=== PATIENT | female | born 1950 | race Caucasian/White ===

== ENCOUNTER 2019-02-19 08:00 | Inpatient (IN) | payer MEDICARE ==
--- NOTE | 2019-02-12 10:12 | HP ---
Amended report to enter cosigning physician. HISTORY AND PHYSICAL: DATE OF ADMISSION/SURGERY: 02/19/19 DATE OF OFFICE VISIT: 02/11/19 SURGEON: Olesya Khan MD* (dictated by DAVIS Ortiz). PROCEDURE: Left total knee arthroplasty. CHIEF COMPLAINT: Left knee pain. HISTORY OF PRESENT ILLNESS: Ms. Shell is a 68-year-old female with end- stage osteoarthritis of the left knee. She has failed conservative treatment and elected to proceed with a left total knee arthroplasty. PAST MEDICAL HISTORY: 1. Hypertension. 2. High cholesterol. 3. History of breast cancer. 4. Sleep apnea. PAST SURGICAL HISTORY: 1. Lumpectomy. 2. Cholecystectomy. 3. Left knee surgery. CURRENT MEDICATIONS: 1. Rosuvastatin calcium 10 mg a day. 2. Vitamin D. 3. Valsartan/hydrochlorothiazide 320/25 mg a day. ALLERGIES: No known drug allergies. FAMILY HISTORY: Cancer. SOCIAL HISTORY: She is a 68-year-old female. She lives with her . She does not smoke or use drugs. REVIEW OF SYSTEMS: A complete 14-point review of systems was reviewed with the patient. It was all negative. She denies history of DVT, PE, hepatitis, HIV, or anesthesia problems. PHYSICAL EXAMINATION GENERAL: She is well developed, well nourished, in no acute distress. VITAL SIGNS: She stands 5 feet 4 inches tall, weighs 187 pounds. Blood pressure 146/90, heart rate 60. HEENT: Normocephalic, atraumatic. NECK: Supple. No palpable lymph nodes. PULMONARY: Lungs are clear to auscultation bilaterally. CARDIO: Regular rate and rhythm. Strong S1, S2. ABDOMEN: Soft, nontender, and nondistended. NEUROLOGICAL: She is alert and oriented x3. MUSCULOSKELETAL: Left lower extremity: The skin is intact. There are no open wounds or abrasions. There is a moderate effusion of the left knee, some tenderness over the medial and lateral joint line. Range of motion is 10 to 120 degrees of flexion with patellofemoral crepitus. She has a 2+ dorsalis pedis pulse. She is able to dorsiflex and plantarflex and has intact sensation. ASSESSMENT AND PLAN: Ms. Shell is a 68-year-old female with end-stage osteoarthritis of the left knee. She has failed conservative treatment and elected to proceed with a left total knee arthroplasty. The surgery is scheduled for 02/19/[address] Khan discussed the risks and benefits of the surgery at today's visit and all of her questions were answered. She will follow up with Dr. Khan 2 weeks after the surgery. DAVIS ORTIZ [id number] #: [id number] MELISSA
[~2019-02-19 08:00] MED LIST: Buffered Lidocaine 1% SYRIN* 1 ML/SYRINGE INTRADERM ONE; Dexamethasone IV* 4 MG/ML 1 ML (4 MG) IV SLOW PU ONE; Famotidine IV* 10 MG/ML 2 ML (20 mg) IV ONE; Gabapentin CAP(*) 300 MG PO ONE; Lactated Ringers 1000 ML Bag* 1,000 ML IV SCH; Tranexamic Acid 1,000 MG in NS 0.9% 50 ML* (outpatient use) IV SCH; celeCOXIB CAP* 200 MG PO ONE
--- OUTSIDE RECORDS SUMMARY | 2019-02-19 08:05 | XMS REPORT | Continuity of Care Document ---
:1950 External Reference #:[id number] Author Name Edith Blake MD Address [address] [place] [address] Care Team Providers Name Role Phone Edith Blake MD Care Team Information Director Of Employer Services Unavailable Payers Date Identification Numbers Payment Provider Subscriber Effective: 2016 Policy Number: [id number] [employer] Number: [id number] [address] [address] PayID: [id number] [place]AYNE lei [id number] Problems Active Problems Provider Date Benign essential hypertension Edith Blake MD Onset: 04/21/2015 Pure hypercholesterolemia Edith Blake MD Onset: 04/21/2015 Essential hypertension Edith Blake MD Onset: 08/10/2015 Family History Date Family Member(s) Observation Comments Father due to Cancer, Esophagus () Social History Type Date Description Comments Sex Unknown Marital Status 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 ETOH Use Denies alcohol use Tobacco Use Start: Unknown Patient has never smoked Recreational Drug Use Never Used Drugs Smoking Status Reviewed: 02/08/19 Patient has never smoked Sun Exposure moderate amount of sun exposure Sun Exposure Does not use sunscreen Seat Belt/Car Seat always uses seat belt Recent Travel There has not been recent travel abroad Allergies, Adverse Reactions, Alerts Description No Known Drug Allergies Medications Active Medications SIG Qnty Indications Ordering Date Provider Shingrix 2 shot series 2units Z00.00 Edith Blake 04/17/2018 50mcg MD [facility] Suspension Rec Co-Enzyme Q-10 1 by mouth every E78.2 Edith Blake 04/17/2018 100mg day MD [facility] Capsules Rosuvastatin Calcium 1 by mouth every 90tabs E78.2 Edith Blake 2017 stephanie Austin MD 10mg Tablets Vitamin D 1 by mouth every E55.9 Edith Blake 04/17/2018 1000Unit day MD [facility] Tablets Cpap auto titrating G47.33 Edith Blake 12/03/2015 5-20 cm dx: efraín Austin MD Valsartan-Hydrochloro take one tablet by 90tabs I10 Edith Blake 04/21 thiazide mouth every day MD [facility] 320-25mg Tablets History Medications Celecoxib take 1 capsule by 60caps M17.0 Lou, 08/07/2018 - 100mg mouth as needed up Edith Austin MD 12/07/2018 Capsules to twice daily for pain/arthritis Silver Sulfadiazine apply to wound LEFT 85gm T25.222A Lou, 08/07/2018 - foot bid. Edith Austin MD 12/07/2018 1% Cream Ranitidine HCL take 1 tablet by 30tabs R07.9 Lou 07/18/2018 - mouth every day Edith Austin MD 12/07/2018 300mg Tablets 30min before last meal Atorvastatin 1 by mouth every day 90tabs E78.2 Lou, 04/17/2017 - Calcium Edith Austin MD 04/17/2018 20mg Tablets Vitamin D3 1 by mouth every day 30tabs E55.9 Lou, 04/17/2017 - 2000Unit Edith Austin MD 04/17/2018 Tablets Vitamin D 1 by mouth qwk x 8 8caps Lou, 04/17/2017 - (Ergocalciferol) wks Edith Austin MD 07/03/2017 [id number] Capsules Azithromycin 1 by mouth every day 7tabs Lou 03/27/2017 - 500mg Edith Austin MD 04/03/2017 Tablets Ciprofloxacin HCL 1 by mouth twice a 6tabs N30.01 Lou, 12/12/2016 - day Edith Austin MD 04/11/2017 250mg Tablets Meclizine HCL take 1 - 2 tablets 30tabs R42 Lou 12/12/2016 - by mouth three times Edith Austin MD 04/11/2017 12.5mg Tablets a day as needed for dizziness Furosemide takeone half to one 30tabs R60.0 Luis 03/25/2016 - 20mg tablet by mouth up Marcia Arredondo RN 04/17/2018 Tablets to 3 times a week as [place] [employer] needed for edema Meloxicam take 1/2 - 1 tablet 30tabs M25.562 Lou, 01/20/2016 - 15mg everyday as needed Edith Austin MD 05/10/2016 Tablets Welchol take 2 every day 60tabs K91.5 Lou, 08/10/2015 - 625mg prn diarrhea Edith Austin MD 12/07/2018 Tablets Aspirin Enteric 1 by mouth every day Lou, 04/21/2015 - Coated Adult Low Edith Austin MD 12/07/[address] Simvastatin 1 by mouth every day 90tabs E78.2 Lou, 04/21/2015 - 40mg Edith Austin MD 12/12/2016 Tablets Zostavax intramuscular x 1 1units Lou, 04/21/2015 - Edith Austin MD 09/21/2015 [id number]/0.65ML Solution Rec Labetalol HCL take one tablet by 90tabs I10 Lou, 04/21/2015 - 200mg mouth every day Edith Austin MD 04/17/2018 Tablets Medications Administered in Office Medication SIG Qnty Indications Ordering Provider Date Depo Medrol 80 MG Sami Padilla PA 08/07/2018 Injection Depo Medrol 80 MG Sami Padilla PA 08/07/2018 Injection Depo Medrol 80 MG Sami Padilla PA 05/29/2018 Injection Depo Medrol 80 MG Edith Blake MD 04/17/2018 Injection Immunizations CPT Code Status Date Vaccine Lot # [id number] Given 08/28/2018 Shingrix (Shingles) Zoster Vaccine HZV, Recombinant, Subunit, Adj [id number] Given 05/29/2018 Influenza Vac, Quadrivalent, Split, 0.5mL Dosage, [id number] Im Use 02065 Given 04/17/2018 Shingrix (Shingles) Zoster Vaccine HZV, Recombinant, Subunit, Adj [id number] Given 04/11/2018 Shingrix (Shingles) Zoster Vaccine HZV, Recombinant, Subunit, Adj 01454 Given 05/10/2016 Pneumococcal 23 Immunization Adult Or [id number] Immunosuppressed Patient [id number] Given 09/21/2015 Tdap (Adacel) Ages 7 And Above Only [id number] Given 09/11/2015 Zoster (Zostavax) 87710 Given 11/09/2014 Prevnar 13 Pneumococal Conjugate Vaccine [id number] Refused 06/30/2017 Influenza Vac, Quadrivalent, Split, 0.5mL Dosage, Im Use [id number] Refused 12/12/2016 Influenza Vac, Quadrivalent, Split, 0.5mL Dosage, Im Use Vital Signs Date Vital Result Comment 02/08/2019 1:51pm Heart Rate 80 /min BP Systolic 140 mmHg BP Diastolic 90 mmHg Height 62.5 inches 5'2.50" 12/07/2018 7:58am Heart Rate 76 /min BP Systolic 130 mmHg BP Diastolic 78 mmHg Height 62.5 inches 5'2.50" 08/07/2018 7:24am Heart Rate 89 /min BP Systolic 143 mmHg BP Diastolic 88 mmHg Height 62.5 inches 5'2.50" 07/18/2018 1:00pm Heart Rate 99 /min BP Systolic 122 mmHg BP Diastolic 85 mmHg Height 62.5 inches 5'2.50" 05/29/2018 7:45am Heart Rate 76 /min BP Systolic 126 mmHg BP Diastolic 87 mmHg Height 62.5 inches 5'2.50" 04/17/2018 9:21am Weight 180.00 lb per pt Heart Rate 76 /min BP Systolic 126 mmHg BP Diastolic 84 mmHg Height 62.5 inches 5'2.50" BMI (Body Mass Index) 32.4 kg/m2 11/28/2017 7:56am Heart Rate 78 /min BP Systolic 132 mmHg BP Diastolic 87 mmHg Height 62.5 inches 5'2.50" 04/11/2017 8:11am Heart Rate 84 /min BP Systolic 132 mmHg BP Diastolic 90 mmHg Height 62.5 inches 5'2.50" 12/12/2016 1:11pm Body Temperature 97.3 F Heart Rate 80 /min BP Systolic 144 mmHg BP Diastolic 84 mmHg BP Systolic Recheck 138 mmHg BP Diastolic Recheck 80 mmHg Height 62.5 inches 5'2.50" 06/13/2016 8:20am Heart Rate 80 /min BP Systolic 137 mmHg BP Diastolic 87 mmHg Height 62.5 inches 5'2.50" 05/10/2016 2:38pm Heart Rate 68 /min BP Systolic 126 mmHg BP Diastolic 82 mmHg Height 62.5 inches 5'2.50" 03/25/2016 11:08am Heart Rate 73 /min BP Systolic 107 mmHg BP Diastolic 74 mmHg Height 62.5 inches 5'2.50" 01/20/2016 8:36am Weight 180.00 lb per pt Heart Rate 70 /min BP Systolic 143 mmHg BP Diastolic 90 mmHg BP Systolic Recheck 122 mmHg BP Diastolic Recheck 74 mmHg Height 62.5 inches 5'2.50" BMI (Body Mass Index) 32.4 kg/m2 09/21/2015 8:56am Heart Rate 68 /min BP Systolic 130 mmHg BP Diastolic 82 mmHg BP Systolic Recheck 120 mmHg BP Diastolic Recheck 70 mmHg Height 62.5 inches 5'2.50" 08/10/2015 1:06pm Heart Rate 68 /min BP Systolic 138 mmHg BP Diastolic 88 mmHg Height 62.5 inches 5'2.50" 04/21/2015 10:40am Weight 185.38 lb Heart Rate 68 /min BP Systolic 120 mmHg BP Diastolic 89 mmHg Height 62.5 inches 5'2.50" BMI (Body Mass Index) 33.4 kg/m2 Results Test Date Facility Test Result H/L Range Note Laboratory test 12/07/2018 [facility] Vitamin D 25 29 ng/mL Low 30-100 1, 2 finding Hydroxy Basic (BMP) 12/07/2018 [facility] Sodium 145 mmol/L 135-146 3 Potassium 4.1 mmol/L 3.5-5.2 Chloride# 102 mmol/L 97-110 4 Carbon Dioxide 33 mmol/L 24-34 Glucose 98 mg/dL 70-105 BUN 21 mg/dL 6-26 Creatinine 0.8 mg/dL 0.5-1.4 Calcium 9.7 mg/dL 8.5-10.2 Non Huong Egfr >60 >60 5 Huong Egfr >60 >60 6 Anion Gap 10 mmol/L 5-15 7 Lipid Treatment 12/07/2018 [facility] Cholesterol 167 mg/dL 50-199 Triglycerides 130 mg/dL 30-200 HDL 49 mg/dL 35-85 8 Chol/ HDL Ratio 3.4 ratio Low 3.7-5.6 VLDL 26 mg/dL 2-29 LDL (Calc) 92 mg/dL 20-99 9 Alt 18 U/L 3-42 Ast 19 U/L 8-42 CBC with Auto Diff-fcmg 04/17/2018 [facility] WBC 6.4 K/uL 4.1-11.0 RBC 4.72 M/uL 4.00-5.40 Hemoglobin 13.9 gm/dL 12.0-16.0 Hematocrit 42.4 % 36.0-47.0 MCV 89.7 fL 80.0-97.0 MCH 29.4 pg 27.0-32.0 MCHC 32.8 g/dL 32.0-36.0 RDW 13.0 % 11.5-14.5 PLT Count 284 K/ul 140-400 MPV 10.4 FL 7.1-10.7 Neutrophil 52.7 % 35.0-75.0 Lymphocyte 34.4 % 16.0-52.0 Monocyte 9.8 % 2.0-10.0 Eosinophil 1.7 % 0.0-5.0 Basophil 1.4 % 0.0-4.0 Abs Neutrophils 3.3 K/uL 2.1-8.0 Abs Lymphocytes 2.2 K/uL 0.8-5.5 Abs Monocytes 0.6 K/uL 0.1-1.0 Abs Eosinophils 0.1 K/uL 0.0-0.5 Abs Basophils 0.1 K/uL 0.0-0.3 Comprehensive Met Panel-[facility] 04/17/2018 [facility] Sodium 143 mmol/L 135- 146 10 Potassium 3.9 mmol/L 3.5-5.2 Chloride# 102 mmol/L 97-110 11 Carbon Dioxide 27 mmol/L 24-34 Glucose 87 mg/dL 70-105 BUN 18 mg/dL 6-26 Creatinine 0.9 mg/dL 0.5-1.4 Calcium 9.7 mg/dL 8.5-10.2 Total Protein 7.0 g/dL 6.0-8.0 Albumin 4.2 g/dL 3.6-4.9 Globulin 2.8 g/dL 2.0-3.5 A/G Ratio 1.5 Ratio 1.0-2.2 Total Bilirubin 0.8 mg/dL 0.1-1.3 Alkaline Phosphatase 46 U/L 24-140 Alt 21 U/L 3-42 Ast 21 U/L 8-42 Huong Egfr >60 >60 12 Non Huong Egfr >60 >60 13 Anion Gap 14 mmol/L 5-15 14 Lipid 04/17/2018 [facility] Cholesterol 251 mg/dL High 50-199 Triglycerides 161 mg/dL 30-200 HDL 52 mg/dL 35-85 15 Chol/ HDL Ratio 4.8 ratio 3.7-5.6 VLDL 32 mg/dL High 2-29 LDL (Calc) 167 mg/dL High -99 16 Laboratory test finding 04/17/2018 [facility] Vitamin D 25 38 ng/mL 30-100 17 Hydroxy Laboratory test finding 04/17/2018 [facility] Ca27.29 19.6 U/mL 18 Comprehensive Met 11/28/2017 [facility] Sodium 144 mmol/L 135-146 19 Panel-[facility] Potassium 4.3 mmol/L 3.5-5.2 Chloride# 102 mmol/L 97-110 20 Carbon Dioxide 33 mmol/L 24-34 Glucose 90 mg/dL 70-105 BUN 18 mg/dL 6-26 Creatinine 0.8 mg/dL 0.5-1.4 Calcium 9.7 mg/dL 8.5-10.2 Total Protein 7.0 g/dL 6.0-8.0 Albumin 4.3 g/dL 3.6-4.9 Globulin 2.7 g/dL 2.0-3.5 A/G Ratio 1.6 Ratio 1.0-2.2 Total Bilirubin 0.7 mg/dL 0.1-1.3 Alkaline Phosphatase 49 U/L 24-140 Alt 20 U/L 3-42 Ast 20 U/L 8-42 Huong Egfr >60 >60 21 Non Huong Egfr >60 >60 22 Anion Gap 9 mmol/L 5-15 23 Lipid 11/28/2017 [facility] Cholesterol 170 mg/dL 50-199 Triglycerides 106 mg/dL 30-200 HDL 57 mg/dL - 24 Chol/ HDL Ratio 3.0 ratio Low 3.7-5.6 VLDL 21 mg/dL 2-29 LDL (Calc) 92 mg/dL - 25 Laboratory test 11/28/2017 [facility] Vitamin D 25 Hydroxy 29 ng/mL Low 30- 100 26 finding Laboratory test 06/30/2017 [facility] Vit D25oh 39 ng/mL 31-100 finding Lipid Treatment 06/30/2017 [facility] Cholesterol 148 mg/dL 50-199 Triglycerides 131 mg/dL 30-200 HDL 47 mg/dL 35- 27 Chol/ HDL Ratio 3.2 ratio Low 3.7-5.6 VLDL 26 mg/dL 2-29 LDL (Calc) 75 mg/dL -99 28 Alt 16 U/L 3-42 Ast 16 U/L 8-42 Laboratory test finding 04/11/2017 [facility] TSH 2.02 uIU/mL 0.35-4.94 Vit D,25 Hydroxy 24 ng/mL Low 31-100 Comprehensive Met Panel-[facility] 04/11/2017 [facility] Sodium 144 mmol/L 135- 146 29 Potassium 4.2 mmol/L 3.5-5.2 Chloride# 102 mmol/L 97-110 30 Carbon Dioxide 29 mmol/L 24-34 Glucose 93 mg/dL 70-105 BUN 21 mg/dL 6-26 Creatinine 1.0 mg/dL 0.5-1.4 Calcium 9.8 mg/dL 8.5-10.2 Total Protein 7.0 g/dL 6.0-8.0 Albumin 4.1 g/dL 3.6-4.9 Globulin 2.9 g/dL 2.0-3.5 A/G Ratio 1.4 Ratio 1.0-2.2 Total Bilirubin 0.7 mg/dL 0.1-1.3 Alkaline Phosphatase 52 U/L 24-140 Alt 20 U/L 3-42 Ast 20 U/L 8-42 Huong Egfr >60 >60 31 Non Huong Egfr 57 Low >60 32 Anion Gap 13 mmol/L 7-16 33 Laboratory test finding 04/11/2017 [facility] Ca27.29 29.6 U/mL 34 Lipid 04/11/2017 [facility] Cholesterol 254 mg/dL High 50-199 Triglycerides 130 mg/dL 30-200 HDL 51 mg/dL 35-85 35 Chol/ HDL Ratio 5.0 ratio 3.7-5.6 VLDL 26 mg/dL 2-29 LDL (Calc) 177 mg/dL High 20-99 36 CBC With Auto Diff 04/11/2017 [facility] WBC 5.9 K/uL 4.1-11.0 RBC 4.69 M/uL 4.00-5.40 Hemoglobin 14.0 gm/dL 12.0-16.0 Hematocrit 42.7 % 36.0-47.0 MCV 91.1 fL 80.0-97.0 MCH 29.7 pg 27.0-32.0 MCHC 32.6 g/dL 32.0-36.0 RDW 12.8 % 11.5-14.5 PLT Count 268 K/ul 140-400 Neutrophil 53.3 % 35.0-75.0 Lymphocyte 32.4 % 16.0-52.0 Monocyte 10.7 % High 2.0-10.0 Eosinophil 2.3 % 0.0-5.0 Basophil 1.3 % 0.0-4.0 Abs Neutrophils 3.2 K/uL 2.1-8.0 Abs Lymphocytes 1.9 K/uL 0.8-5.5 Abs Monocytes 0.6 K/uL 0.1-1.0 Abs Eosinophils 0.1 K/uL 0.0-0.5 Abs Basophils 0.1 K/uL 0.0-0.3 Laboratory test 12/12/2016 [facility] Urine Culture Microbiology res Abnormal 37 finding <SEE NOTE> CBC With Auto 12/12/2016 [facility] WBC 7.5 K/uL 4.1-11 Diff .0 RBC 4.96 M/uL 4.00-5.40 Hemoglobin 14.7 gm/dL 12.0-16.0 Hematocrit 44.4 % 36.0-47.0 MCV 89.4 fL 80.0-97.0 MCH 29.7 pg 27.0-32.0 MCHC 33.2 g/dL 32.0-36.0 RDW 12.7 % 11.5-14.5 PLT Count 305 K/ul 140-400 Neutrophil 56.6 % 35.0-75.0 Lymphocyte 32.4 % 16.0-52.0 Monocyte 8.3 % 2.0-10.0 Eosinophil 1.5 % 0.0-5.0 Basophil 1.2 % 0.0-4.0 Abs Neutrophils 4.2 K/uL 2.1-8.0 Abs Lymphocytes 2.4 K/uL 0.8-5.5 Abs Monocytes 0.6 K/uL 0.1-1.0 Abs Eosinophils 0.1 K/uL 0.0-0.5 Abs Basophils 0.1 K/uL 0.0-0.3 Comprehensive Metabolic (CMP) 12/12/2016 [facility] Sodium 144 mmol/L 135- 146 38 Potassium 4.6 mmol/L 3.5-5.2 Chloride# 102 mmol/L 97-110 39 Carbon Dioxide 32 mmol/L 24-34 Glucose 95 mg/dL 70-105 BUN 16 mg/dL 6-26 Creatinine 0.9 mg/dL 0.5-1.4 Calcium 10.1 mg/dL 8.5-10.2 Total Protein 6.9 g/dL 6.0-8.0 Albumin 4.4 g/dL 3.6-4.9 Globulin 2.5 g/dL 2.0-3.5 A/G Ratio 1.8 Ratio 1.0-2.2 Total Bilirubin 0.5 mg/dL 0.1-1.3 Alkaline Phosphatase 53 U/L 24-140 Alt 19 U/L 3-42 Ast 20 U/L 8-42 Huong Egfr >60 >60 40 Non Huong Egfr >60 >60 41 Anion Gap 15 mmol/L 7-16 42 Lipid 01/20/2016 [facility] Cholesterol 145 mg/dL 50-199 Triglycerides 133 mg/dL 30-200 HDL 49 mg/dL 35-85 43 Chol/ HDL Ratio 3.0 ratio Low 3.7-5.6 VLDL 27 mg/dL 2-29 LDL (Calc) 69 mg/dL 20-99 44 Comprehensive Metabolic (CMP) 01/20/2016 [facility] Sodium 140 mmol/L 134- 142 Potassium 5.2 mmol/L 3.5-5.2 Chloride 103 mmol/L 97-109 Carbon Dioxide 32 mmol/L 24-34 Glucose 85 mg/dL 70-105 BUN 18 mg/dL 6-26 Creatinine 0.9 mg/dL 0.5-1.4 Calcium 9.5 mg/dL 8.5-10.2 Total Protein 6.3 g/dL 6.0-8.0 Albumin 3.8 g/dL 3.6-4.9 Globulin 2.5 g/dL 2.0-3.5 A/G Ratio 1.5 Ratio 1.0-2.2 Total Bilirubin 0.6 mg/dL 0.1-1.3 Alkaline Phosphatase 39 U/L 24-140 Alt 15 U/L 3-42 Ast 17 U/L 8-42 Anion Gap 10 mmol/L 6-14 Huong Egfr >60 >60 45 Non Huong Egfr >60 >60 46 Laboratory test 08/10/2015 [facility] Hepatitis C Virus NONREACTIVE Nonreactive finding Antibody Hepatic Panel (LFT) 08/10/2015 [facility] Total Protein 6.5 g/dL 6.0-8.0 Albumin 3.9 g/dL 3.6-4.9 Total Bilirubin 0.4 mg/dL 0.1-1.3 Direct Bilirubin 0.1 mg/dL 0.0-0.4 Alkaline Phosphatase 42 U/L 24-140 Alt 20 U/L 3-42 Ast 20 U/L 8-42 Lipid 08/10/2015 [facility] Cholesterol 203 mg/dL High 50-199 Triglycerides 137 mg/dL 30-200 HDL 50 mg/dL 35-85 47 Chol/ HDL Ratio 4.1 ratio 3.7-5.6 VLDL 27 mg/dL 2-29 LDL (Calc) 126 mg/dL High 20-99 48 Laboratory test finding 04/21/2015 [facility] Vit D,25 Hydroxy 65 ng/mL 31- 100 TSH 2.13 uIU/mL 0.35-4.94 Free T4 1.04 ng/dL 0.70-1.48 Lipid 04/21/2015 [facility] Cholesterol 187 mg/dL 50-199 Triglycerides 148 mg/dL 30-200 HDL 46 mg/dL 35-85 49 Chol/ HDL Ratio 4.1 ratio 3.7-5.6 VLDL 30 mg/dL High 2-29 LDL (Calc) 111 mg/dL High 20-99 50 Comprehensive Metabolic (CMP) 04/21/2015 [facility] Sodium 141 mmol/L 134- 142 Potassium 3.8 mmol/L 3.5-5.2 Chloride 100 mmol/L 97-109 Carbon Dioxide 35 mmol/L High 24-34 Glucose 78 mg/dL 70-105 BUN 24 mg/dL 6-26 Creatinine 0.8 mg/dL 0.5-1.4 Calcium 9.5 mg/dL 8.5-10.2 Total Protein 6.8 g/dL 6.0-8.0 Albumin 4.2 g/dL 3.6-4.9 Globulin 2.6 g/dL 2.0-3.5 A/G Ratio 1.6 Ratio 1.0-2.2 Total Bilirubin 0.7 mg/dL 0.1-1.3 Alkaline Phosphatase 44 U/L 24-140 Alt 15 U/L 3-42 Ast 17 U/L 8-42 Anion Gap 10 mmol/L 6-14 Huong Egfr >60 >60 51 Non Huong Egfr >60 >60 52 CBC With Auto Diff 04/21/2015 [facility] WBC 5.4 K/uL 4.1-11.0 RBC 4.47 M/uL 4.00-5.40 Hemoglobin 13.2 gm/dL 12.0-16.0 Hematocrit 40.2 % 36.0-47.0 MCV 90.0 fL 80.0-97.0 MCH 29.6 pg 27.0-32.0 MCHC 32.9 g/dL 32.0-36.0 RDW 12.8 % 11.5-14.5 PLT Count 254 K/ul 140-400 Neutrophil 53.2 % 35.0-75.0 Lymphocyte 32.9 % 16.0-52.0 Monocyte 9.5 % 2.0-10.0 Eosinophil 3.5 % 0.0-5.0 Basophil 0.9 % 0.0-4.0 Abs Neutrophils 2.9 K/uL 2.1-8.0 Abs Lymphocytes 1.8 K/uL 0.8-5.5 Abmon 0.5 K/uL 0.1-1.0 Abs Eosinophils 0.2 K/uL 0.0-0.5 Abs Basophils 0.0 K/uL 0.0-0.3 1 This sample is drawn by:NB. 2 Clinical Guidelines for recommended serum 25(OH)Vitamin D Deficient at less than 20 ng/mL Insufficient at 20 to <30 ng/mL Sufficient at 30-100 ng/mL Toxicity at greater than 100 ng/mL 3 Updated reference range on new analyzer 4 Updated reference range on new analyzer 5 Concerning GFR Guidelines: Normal function or mild renal disease, if clinically at risk: >/=60 mL/min Moderately decreased: 30-59 Severely decreased: 15-29 Renal failure: <15 Glomerular Filtration Rate (GFR) is estimated based on the MDRD equation, which assumes a steady state for creatinine as recommended by the National Kidney Disease Education Program in conjunction with the National Institutes of Health and the National Kidney Foundation. Clinical conditions in which it may be necessary to measure GFR by using clearance methods include extremes of age and body size, severe malnutrition or obesity, diseases of skeletal muscle, paraplegia or quadriplegia, vegetarian diet, rapidly changing kidney function, and calculation of the dose of potentially toxic drugs that are excreted by the kidneys. 6 Concerning GFR Guidelines for Americans: Normal function or mild renal disease, if clinically at risk: >/=60 mL/min Moderately decreased: 30-59 Severely decreased: 15-29 Renal failure: <15 7 Updated Reference Range 8 Per NCEP ATP III Guidelines: Results lower than 40 mg/dL are suggestive of increased risk for coronary artery disease. Results > or=to 60 mg/dL are considered a negative risk factor. 9 Per NCEP ATP III Guidelines: Normal Population <130 Patients with medical conditions: CHD/DM Optimal: <100 Borderline high: 130-159 High: 160-189 Very high: >189 10 Updated reference range on new analyzer 11 Updated reference range on new analyzer 12 Concerning GFR Guidelines for Americans: Normal function or mild renal disease, if clinically at risk: >/=60 mL/min Moderately decreased: 30-59 Severely decreased: 15-29 Renal failure: <15 13 Concerning GFR Guidelines: Normal function or mild renal disease, if clinically at risk: >/=60 mL/min Moderately decreased: 30-59 Severely decreased: 15-29 Renal failure: <15 Glomerular Filtration Rate (GFR) is estimated based on the MDRD equation, which assumes a steady state for creatinine as recommended by the National Kidney Disease Education Program in conjunction with the National Institutes of Health and the National Kidney Foundation. Clinical conditions in which it may be necessary to measure GFR by using clearance methods include extremes of age and body size, severe malnutrition or obesity, diseases of skeletal muscle, paraplegia or quadriplegia, vegetarian diet, rapidly changing kidney function, and calculation of the dose of potentially toxic drugs that are excreted by the kidneys. 14 Updated Reference Range 15 Per NCEP ATP III Guidelines: Results lower than 40 mg/dL are suggestive of increased risk for coronary artery disease. Results > or=to 60 mg/dL are considered a negative risk factor. 16 Per NCEP ATP III Guidelines: Normal Population <130 Patients with medical conditions: CHD/DM Optimal: <100 Borderline high: 130-159 High: 160-189 Very high: >189 17 Clinical Guidelines for recommended serum 25(OH)Vitamin D Deficient at less than 20 ng/mL Insufficient at 20 to <30 ng/mL Sufficient at 30-100 ng/mL Toxicity at greater than 100 ng/mL 18 Reference range: 0.0 to 40.0 INTERPRETIVE INFORMATION: Cancer Antigen 27.29 The CA 27.29 assay is intended for use in monitorin) disease progression and/or response to therapy in patients with metastatic disease, and 2) disease recurrence in patients treated previously for stages II or III breast carcinoma who are clinically free of the disease. Serial testing in patients who are clinically free of disease should be used in conjunction with other clinical methods for early detection of cancer recurrence. Limitations: Patients with confirmed breast carcinoma frequently have CA 27.29 assay values in the same range as healthy individuals. Elevations may also be observed in patients with non malignant disease. Results of this test must always be interpreted in the context of morphologic and other relevant data, and should not be used alone for a diagnosis of malignancy. Methodology: Siemens Advia Centaur CA 27.29 chemiluminescent immunoassay was used. Results obtained with different assay methods or kits cannot be used interchangeably. Performed by [facility], [address] [place] [id number] [email or web address], Kraig Dawn MD, Lab. Director Unless otherwise specified, testing performed by [facility] [address] [place] [id number] 19 Updated reference range on new analyzer 20 Updated reference range on new analyzer 21 Concerning GFR Guidelines for Americans: Normal function or mild renal disease, if clinically at risk: >/=60 mL/min Moderately decreased: 30-59 Severely decreased: 15-29 Renal failure: <15 22 Concerning GFR Guidelines: Normal function or mild renal disease, if clinically at risk: >/=60 mL/min Moderately decreased: 30-59 Severely decreased: 15-29 Renal failure: <15 Glomerular Filtration Rate (GFR) is estimated based on the MDRD equation, which assumes a steady state for creatinine as recommended by the National Kidney Disease Education Program in conjunction with the National Institutes of Health and the National Kidney Foundation. Clinical conditions in which it may be necessary to measure GFR by using clearance methods include extremes of age and body size, severe malnutrition or obesity, diseases of skeletal muscle, paraplegia or quadriplegia, vegetarian diet, rapidly changing kidney function, and calculation of the dose of potentially toxic drugs that are excreted by the kidneys. 23 Updated Reference Range 24 Per NCEP ATP III Guidelines: Results lower than 40 mg/dL are suggestive of increased risk for coronary artery disease. Results > or=to 60 mg/dL are considered a negative risk factor. 25 Per NCEP ATP III Guidelines: Normal Population <130 Patients with medical conditions: CHD/DM Optimal: <100 Borderline high: 130-159 High: 160-189 Very high: >189 26 Clinical Guidelines for recommended serum 25(OH)Vitamin D Deficient at less than 20 ng/mL Insufficient at 20 to <30 ng/mL Sufficient at 30-100 ng/mL Toxicity at greater than 100 ng/mL 27 Per NCEP ATP III Guidelines: Results lower than 40 mg/dL are suggestive of increased risk for coronary artery disease. Results > or=to 60 mg/dL are considered a negative risk factor. 28 Per NCEP ATP III Guidelines: Normal Population <130 Patients with medical conditions: CHD/DM Optimal: <100 Borderline high: 130-159 High: 160-189 Very high: >189 29 Updated reference range on new analyzer 30 Updated reference range on new analyzer 31 Concerning GFR Guidelines for Americans: Normal function or mild renal disease, if clinically at risk: >/=60 mL/min Moderately decreased: 30-59 Severely decreased: 15-29 Renal failure: <15 32 Concerning GFR Guidelines: Normal function or mild renal disease, if clinically at risk: >/=60 mL/min Moderately decreased: 30-59 Severely decreased: 15-29 Renal failure: <15 Glomerular Filtration Rate (GFR) is estimated based on the MDRD equation, which assumes a steady state for creatinine as recommended by the National Kidney Disease Education Program in conjunction with the National Institutes of Health and the National Kidney Foundation. Clinical conditions in which it may be necessary to measure GFR by using clearance methods include extremes of age and body size, severe malnutrition or obesity, diseases of skeletal muscle, paraplegia or quadriplegia, vegetarian diet, rapidly changing kidney function, and calculation of the dose of potentially toxic drugs that are excreted by the kidneys. 33 Updated reference range on new analyzer 34 Reference range: 0.0 to 40.0 INTERPRETIVE INFORMATION: Cancer Antigen 27.29 The CA 27.29 assay is intended for use in monitorin) disease progression and/or response to therapy in patients with metastatic disease, and 2) disease recurrence in patients treated previously for stages II or III breast carcinoma who are clinically free of the disease. Serial testing in patients who are clinically free of disease should be used in conjunction with other clinical methods for early detection of cancer recurrence. Limitations: Patients with confirmed breast carcinoma frequently have CA 27.29 assay values in the same range as healthy individuals. Elevations may also be observed in patients with non malignant disease. Results of this test must always be interpreted in the context of morphologic and other relevant data, and should not be used alone for a diagnosis of malignancy. Methodology: Siemens [employer] CA 27.29 chemiluminescent immunoassay was used. Results obtained with different assay methods or kits cannot be used interchangeably. Performed by [facility], [address] [place] [id number] [email or web address], Kraig Dawn MD, Lab. Director Unless otherwise specified, testing performed by [facility] [address] [place] [id number] 35 Per NCEP ATP III Guidelines: Results lower than 40 mg/dL are suggestive of increased risk for coronary artery disease. Results > or=to 60 mg/dL are considered a negative risk factor. 36 Per NCEP ATP III Guidelines: Normal Population <130 Patients with medical conditions: CHD/DM Optimal: <100 Borderline high: 130-159 High: 160-189 Very high: >189 37 Microbiology results SOURCE Random urine COLONY COUNT >100,000 CFU/ML PRELIMINARY RESULT Gram Negative Cameron. ID & Sensitivity to Follow. FINAL RESULT Escherichia coli (Isolate 1) Sensitivity Analysis Isolate 1 --------- AMIKACIN <=16 S AMPICILLIN <=8 S AMPICILLIN/SULBACTAM <=8/4 S AZTREONAM <=4 S CEFAZOLIN <=2 S CEFEPIME <=8 S CEFTAZIDIME <=1 S CEFTRIAXONE <=1 S CIPROFLOXACIN <=1 S ERTAPENEM <=0.5 S GENTAMYCIN <=2 S IMIPENEM <=1 S LEVOFLOXACIN <=2 S NITROFURANTOIN <=32 S PIPERACILLIN/TAZOBACTAM <=16 S TETRACYCLINE <=4 S TOBRAMYCIN <=4 S TRIMETHOPRIM/SULFAMETHOXAZ <=2/38 S S=Sensitive;I=Indeterminate;R=Resistant 38 Updated reference range on new analyzer 39 Updated reference range on new analyzer 40 Concerning GFR Guidelines for Americans: Normal function or mild renal disease, if clinically at risk: >/=60 mL/min Moderately decreased: 30-59 Severely decreased: 15-29 Renal failure: <15 41 Concerning GFR Guidelines: Normal function or mild renal disease, if clinically at risk: >/=60 mL/min Moderately decreased: 30-59 Severely decreased: 15-29 Renal failure: <15 Glomerular Filtration Rate (GFR) is estimated based on the MDRD equation, which assumes a steady state for creatinine as recommended by the National Kidney Disease Education Program in conjunction with the National Institutes of Health and the National Kidney Foundation. Clinical conditions in which it may be necessary to measure GFR by using clearance methods include extremes of age and body size, severe malnutrition or obesity, diseases of skeletal muscle, paraplegia or quadriplegia, vegetarian diet, rapidly changing kidney function, and calculation of the dose of potentially toxic drugs that are excreted by the kidneys. 42 Updated reference range on new analyzer 43 Per NCEP ATP III Guidelines: Results lower than 40 mg/dL are suggestive of increased risk for coronary artery disease. Results > or=to 60 mg/dL are considered a negative risk factor. 44 Per NCEP ATP III Guidelines: Normal Population <130 Patients with medical conditions: CHD/DM Optimal: <100 Borderline high: 130-159 High: 160-189 Very high: >189 45 Concerning GFR Guidelines for Americans: Normal function or mild renal disease, if clinically at risk: >/=60 mL/min Moderately decreased: 30-59 Severely decreased: 15-29 Renal failure: <15 46 Concerning GFR Guidelines: Normal function or mild renal disease, if clinically at risk: >/=60 mL/min Moderately decreased: 30-59 Severely decreased: 15-29 Renal failure: <15 Glomerular Filtration Rate (GFR) is estimated based on the MDRD equation, which assumes a steady state for creatinine as recommended by the National Kidney Disease Education Program in conjunction with the National Institutes of Health and the National Kidney Foundation. Clinical conditions in which it may be necessary to measure GFR by using clearance methods include extremes of age and body size, severe malnutrition or obesity, diseases of skeletal muscle, paraplegia or quadriplegia, vegetarian diet, rapidly changing kidney function, and calculation of the dose of potentially toxic drugs that are excreted by the kidneys. 47 Per NCEP ATP III Guidelines: Results lower than 40 mg/dL are suggestive of increased risk for coronary artery disease. Results > or=to 60 mg/dL are considered a negative risk factor. 48 Per NCEP ATP III Guidelines: Normal Population <130 Patients with medical conditions: CHD/DM Optimal: <100 Borderline high: 130-159 High: 160-189 Very high: >189 49 Per NCEP ATP III Guidelines: Results lower than 40 mg/dL are suggestive of increased risk for coronary artery disease. Results > or=to 60 mg/dL are considered a negative risk factor. 50 Per NCEP ATP III Guidelines: Normal Population <130 Patients with medical conditions: CHD/DM Optimal: <100 Borderline high: 130-159 High: 160-189 Very high: >189 51 Concerning GFR Guidelines for Americans: Normal function or mild renal disease, if clinically at risk: >/=60 mL/min Moderately decreased: 30-59 Severely decreased: 15-29 Renal failure: <15 52 Concerning GFR Guidelines: Normal function or mild renal disease, if clinically at risk: >/=60 mL/min Moderately decreased: 30-59 Severely decreased: 15-29 Renal failure: <15 Glomerular Filtration Rate (GFR) is estimated based on the MDRD equation, which assumes a steady state for creatinine as recommended by the National Kidney Disease Education Program in conjunction with the National Institutes of Health and the National Kidney Foundation. Clinical conditions in which it may be necessary to measure GFR by using clearance methods include extremes of age and body size, severe malnutrition or obesity, diseases of skeletal muscle, paraplegia or quadriplegia, vegetarian diet, rapidly changing kidney function, and calculation of the dose of potentially toxic drugs that are excreted by the kidneys. Procedures Date Code Description Status 12/24/2018 [id number] Mammogram Completed 08/07/2018 05417 Inject/Drain Joint/Bursa Major W/Out Ultrasound Completed Guidance 07/18/2018 41233 Electrocardiogram Complete Completed 05/29/2018 10348 Inject/Drain Joint/Bursa Major W/Out Ultrasound Completed Guidance 04/17/2018 17139 Electrocardiogram Complete Completed 04/17/2018 79773 Inject/Drain Joint/Bursa Major W/Out Ultrasound Completed Guidance 12/05/2017 [id number] Mammogram Completed 12/05/2017 [id number] Bone Mineral Density Test Completed 06/02/2017 10481993 Colonoscopy Completed 12/12/2016 86449 Electrocardiogram Complete Completed 11/25/2016 [id number] Mammogram Completed 06/13/2016 48118 Destruction Benign Lesions Other Than Skin Tags Up To Completed 14 Lesions 05/10/2016 85187 Electrocardiogram Complete Completed 05/10/2016 58100 Admin Of Inj (Therapeutic Phrophylactic Or Diagnostic Completed Subq Inj 10/16/2015 [id number] Mammogram Completed 09/21/2015 69149 Admin Of Inj (Therapeutic Phrophylactic Or Diagnostic Completed Subq Inj 09/21/2015 42860 Electrocardiogram Complete Completed 04/21/2015 95099 Electrocardiogram Complete Completed 10/16/2014 [id number] Mammogram Completed 10/14/2013 [id number] Mammogram Completed 10/12/2012 [id number] Mammogram Completed 10/10/2011 [id number] Mammogram Completed 10/07/2010 [id number] Mammogram Completed Encounters Type Date Location Provider Dx Diagnosis Office Visit 12/07/2018 Edith Tate I10 Essential (primary) 8:00a MD [place] hypertension E78.2 Mixed hyperlipidemia M17.0 Bilateral primary osteoarthritis of knee C50.812 Malignant neoplasm of ovrlp sites of LEFT female breast R07.9 Chest pain, unspecified E55.9 Vitamin D deficiency, unspecified G47.33 Obstructive sleep apnea (adult) (pediatric) Z79.82 USP (current) use of aspirin I65.23 Occlusion and stenosis of bilateral carotid arteries Office Visit 08/07/2018 7:45a Sami Garcia PA R07.9 Chest pain, unspecified M17.0 Bilateral primary osteoarthritis of knee I10 Essential (primary) hypertension E78.2 Mixed hyperlipidemia T25.222A Burn of second degree of LEFT foot, initial encounter Office Visit 07/18/2018 1:00p Sami Garcia PA R07.9 Chest pain, unspecified I10 Essential (primary) hypertension E78.2 Mixed hyperlipidemia M17.0 Bilateral primary osteoarthritis of knee Office Visit 05/29/2018 8:20a Sami Garcia PA M17.0 Bilateral primary osteoarthritis of knee M79.1 Myalgia Z23 Encounter for immunization Office Visit 04/17/2018 9:30a Edith Tate Z00.00 Encntr for general MD [place] adult medical exam w/o abnormal findings I10 Essential (primary) hypertension E55.9 Vitamin D deficiency, unspecified E78.2 Mixed hyperlipidemia C50.812 Malignant neoplasm of ovrlp sites of LEFT female breast G47.33 Obstructive sleep apnea (adult) (pediatric) I65.23 Occlusion and stenosis of bilateral carotid arteries 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 M85.9 Disorder of bone density and structure, unspecified Z79.82 USP (current) use of aspirin M17.0 Bilateral primary osteoarthritis of knee Z13.89 Encounter for screening for other disorder M17.12 Unilateral primary osteoarthritis, LEFT knee Z12.11 Encounter for screening for malignant neoplasm of colon Z68.32 Body mass index (BMI) 32.0-32.9, adult Office Visit 11/28/2017 8:00a Edith Tate I10 Essential ( primary) MD [place] hypertension E78.2 Mixed hyperlipidemia C50.812 Malignant neoplasm of ovrlp sites of LEFT female breast G47.33 Obstructive sleep apnea (adult) (pediatric) M25.562 Pain in LEFT knee E55.9 Vitamin D deficiency, unspecified Office Visit 04/11/2017 8:15a Edith Tate Z00.00 Encntr for general MD [place] adult medical exam w/o abnormal findings C50.812 Malignant neoplasm of ovrlp sites of LEFT female breast I10 Essential (primary) hypertension E78.2 Mixed hyperlipidemia Z12.31 Encntr screen mammogram for malignant neoplasm of breast Z12.11 Encounter for screening for malignant neoplasm of colon G47.33 Obstructive sleep apnea (adult) (pediatric) M85.9 Disorder of bone density and structure, unspecified 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 M25.562 Pain in LEFT knee Office Visit 12/12/2016 1:15p Edith Tate Z00.01 Encounter for MD [place] general adult medical exam w abnormal findings N30.01 Acute cystitis with hematuria I10 Essential (primary) hypertension E78.2 Mixed hyperlipidemia Z12.31 Encntr screen mammogram for malignant neoplasm of breast Z12.11 Encounter for screening for malignant neoplasm of colon R42 Dizziness and giddiness Office Visit 05/10/2016 2:15p Edith Tate Z01.818 Encounter for other MD [place] preprocedural examination I10 Essential (primary) hypertension E78.0 Pure hypercholesterolemia G47.33 Obstructive sleep apnea (adult) (pediatric) M25.562 Pain in LEFT knee L82.0 Inflamed seborrheic keratosis Z23 Encounter for immunization Office Visit 03/25/2016 10:40a Marcia Callejas, R60.0 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 edema 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[place] [employer] Office Visit 01/20/2016 8:30a Edith Tate I10 Essential ( primary) MD [place] hypertension E78.0 Pure hypercholesterolemia G47.33 Obstructive sleep apnea (adult) (pediatric) N20.0 Calculus of kidney 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 I65.23 Occlusion and stenosis of bilateral carotid arteries M25.562 Pain in LEFT knee Office Visit 09/21/2015 9:00a Edith Tate Z00.01 Encounter for MD [place] general adult medical exam w abnormal findings I10 Essential (primary) hypertension E78.0 Pure hypercholesterolemia 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 C50.812 Malignant neoplasm of ovrlp sites of LEFT female breast N20.0 Calculus of kidney Z12.31 Encntr screen mammogram for malignant neoplasm of breast Z12.11 Encounter for screening for malignant neoplasm of colon M85.9 Disorder of bone density and structure, unspecified I65.23 Occlusion and stenosis of bilateral carotid arteries R53.82 Chronic fatigue, unspecified G47.33 Obstructive sleep apnea (adult) (pediatric) Z23 Encounter for immunization Office Visit 08/10/2015 1:00p Edith Tate R10.11 RIGHT upper quadrant MD [place] pain I10 Essential (primary) hypertension E78.0 Pure hypercholesterolemia 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 Z11.59 Encounter for screening for other viral diseases Office Visit 04/21/2015 10:30a Edith Tate MD 401.1 Hypertension Benign 272.0 Hypercholesterolemia Pure 278.4 Hypervitaminosis D V76.10 Screening For Malignant Neoplasm Breast 174.8 Malignant Neoplasm Female Breast Other Spec Sites 794.31 Electrocardiogram (ECG) (EKG) Abnormal 780.79 Malaise And Fatigue Other 715.16 Osteoarthrosis Localized Prim Lower Leg Plan of Treatment Future Appointment(s):05/10/2019 8:30 am - Edith Blake MD at [id number] - Edith Blake MDZ01.818 Encounter for other preprocedural mlfxjdbsmlpZ75.31 Abnormal electrocardiogram [ECG] [EKG]Referral:Glendy Gomes , Cardiology/Phys/JcaikW09.9 Vitamin D deficiency, unspecified
--- OUTSIDE RECORDS SUMMARY | 2019-02-19 08:05 | XMS REPORT | Continuity of Care Document ---
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 Payers Date Identification Numbers Payment Provider Subscriber Effective: 2016 Policy Number: [id number] [employer] Number: [id number] [address] [id number] PayID: [id number] DWAYNE Cain [id number] Problems Active Problems Provider Date Benign essential hypertension Edith Blake MD Onset: 04/21/2015 Pure hypercholesterolemia Edith Blake MD Onset: 04/21/2015 Essential hypertension Edith Blake MD Onset: 08/10/2015 Family History Date Family Member(s) Observation Comments Father due to Cancer, Esophagus () Social History Type Date Description Comments Sex Unknown Marital Status 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 Use Denies alcohol use Tobacco Use [...] mouth every 90tabs E78.2 Edith Blake 2017 day MD [place] 10mg Tablets Vitamin D 1 by mouth every E55.9 Edith Blake 04/17/2018 1000Unit day MD [place] Tablets Cpap auto titrating G47.33 Lou Edith 12/03/2015 5-20 cm dx: efraín Austin MD [...] HCL take 1 tablet by 30tabs R07.9 Lou, 07/18/2018 - mouth every day Edith Austin MD 12/07/2018 300mg Tablets 30min before last meal Atorvastatin 1 by mouth every day 90tabs E78.2 Lou 04/17/2017 - Calcium Edith Austin MD 04/17/2018 20mg Tablets Vitamin D3 1 by mouth every day 30tabs E55.9 Lou, 04/17/2017 - 2000Unit Edith Austin MD 04/17/2018 Tablets Vitamin D 1 by mouth qwk x 8 8caps Lou, 04/17/2017 - (Ergocalciferol) wks Edith Austin MD 07/03/2017 [id number] Capsules Azithromycin 1 by mouth every day [...] Furosemide takeone half to one 30tabs R60.0 Luis, 03/25/2016 - 20mg tablet by mouth up Marcia Arredondo RN 04/17/2018 Tablets to 3 times a week as [employer] needed for edema Meloxicam take 1/2 - [...] Lou, 04/21/2015 - Edith Austin MD 09/21/2015 85103Cns/0.65ML Solution Rec Labetalol HCL take one tablet [...] CPT Code Status Date Vaccine Lot # [id number] Given 08/28/2018 Shingrix (Shingles) Zoster Vaccine HZV, Recombinant, Subunit, Adj 03027 Given 05/29/2018 Influenza Vac, Quadrivalent, Split, 0.5mL Dosage, [id number] Im Use 22563 Given 04/17/2018 Shingrix (Shingles) Zoster Vaccine HZV, Recombinant, Subunit, Adj 87501 Given 04/11/2018 Shingrix (Shingles) Zoster Vaccine HZV, Recombinant, Subunit, Adj 80160 Given 05/10/2016 Pneumococcal 23 Immunization Adult Or [id number] Immunosuppressed Patient 10396 Given 09/21/2015 Tdap (Adacel) Ages 7 And Above Only [id number] 41605 Given 09/11/2015 Zoster (Zostavax) 40378 Given 11/09/2014 Prevnar 13 Pneumococal Conjugate Vaccine 24618 Refused 06/30/2017 Influenza Vac, Quadrivalent, Split, 0.5mL Dosage, Im Use 18123 Refused 12/12/2016 Influenza Vac, Quadrivalent, Split, 0.5mL [...] High 2-29 LDL (Calc) 167 mg/dL High 20-99 16 Laboratory test finding 04/17/2018 [facility] Vitamin [...] Triglycerides 106 mg/dL 30-200 HDL 57 mg/dL 35-85 24 Chol/ HDL Ratio 3.0 ratio Low 3.7-5.6 VLDL 21 mg/dL 2-29 LDL (Calc) 92 mg/dL 20-99 25 Laboratory test 11/28/2017 [facility] Vitamin D 25 Hydroxy 29 ng/mL Low 30- 100 26 finding Laboratory test 06/30/2017 [facility] Vit D25oh 39 ng/mL 31-100 finding Lipid Treatment 06/30/2017 [facility] Cholesterol 148 mg/dL 50-199 Triglycerides 131 mg/dL 30-200 HDL 47 mg/dL 35-85 27 Chol/ HDL Ratio 3.2 ratio Low 3.7-5.6 VLDL 26 mg/dL 2-29 LDL (Calc) 75 mg/dL 20-99 28 Alt 16 U/L 3-42 Ast 16 U/L 8-42 Laboratory test finding 04/11/2017 [facility] TSH 2.02 uIU/mL 0.35-4.94 Vit D,25 Hydroxy [...] High 20-99 48 Laboratory test finding 04/21/2015 [facility] Vit D,25 Hydroxy 65 ng/mL 31- 100 [...] K/uL 0.0-0.3 1 This sample is drawn by:[facility]. 2 Clinical Guidelines for recommended serum 25(OH)Vitamin [...] kits cannot be used interchangeably. Performed by [facility], [address] [place] [id number] [email or web address], Kraig Dawn MD, Lab. Director Unless otherwise specified, testing performed by [facility] [address] [place] [id number] 19 Updated reference range on new analyzer [...] for a diagnosis of malignancy. Methodology: Siemens [employer]aur CA 27.29 chemiluminescent immunoassay was used. Results obtained with different assay methods or kits cannot be used interchangeably. Performed by [facility], [facility] [place] [address] [email or web address], Kraig Dawn MD, Lab. Director Unless otherwise specified, testing performed by [facility] [address] [place] [id number] 35 Per NCEP ATP III Guidelines: Results [...] kidneys. 42 Updated reference range on new 43 Per NCEP ATP III Guidelines: Results [...] kidneys. Procedures Date Code Description Status 12/24/2018 [id number] Mammogram Completed 08/07/2018 26788 Inject/Drain Joint/Bursa Major W/Out Ultrasound Completed Guidance 07/18/2018 86751 Electrocardiogram Complete Completed 05/29/2018 51267 Inject/Drain Joint/Bursa Major W/Out Ultrasound Completed Guidance 04/17/2018 33232 Electrocardiogram Complete Completed 04/17/2018 81393 Inject/Drain Joint/Bursa Major W/Out Ultrasound Completed Guidance 12/05/2017 [id number] Mammogram Completed 12/05/2017 [id number] Bone Mineral Density Test Completed 06/02/2017 [id number] Colonoscopy Completed 12/12/2016 72262 Electrocardiogram Complete Completed 11/25/2016 [id number] Mammogram Completed 06/13/2016 80012 Destruction Benign Lesions Other Than Skin Tags Up To Completed 14 Lesions 05/10/2016 33065 Electrocardiogram Complete Completed 05/10/2016 78195 Admin Of Inj (Therapeutic Phrophylactic Or Diagnostic Completed Subq Inj 10/16/2015 [id number] Mammogram Completed 09/21/2015 56548 Admin Of Inj (Therapeutic Phrophylactic Or Diagnostic Completed Subq Inj 09/21/2015 73189 Electrocardiogram Complete Completed 04/21/2015 04694 Electrocardiogram Complete Completed 10/16/2014 [id number] Mammogram Completed 10/14/2013 [id number] Mammogram Completed 10/12/2012 [id number] Mammogram Completed 10/10/2011 [id number] Mammogram Completed 10/07/2010 [id number] Mammogram Completed Encounters Type Date Location Provider Dx Diagnosis Office Visit 12/07/2018 Edith Tate I10 Essential (primary) 8:00a MD [place] hypertension E78.2 Mixed hyperlipidemia M17.0 Bilateral primary osteoarthritis of knee C50.812 Malignant neoplasm of ovrlp sites of LEFT female breast R07.9 Chest pain, unspecified E55.9 Vitamin D deficiency, unspecified G47.33 Obstructive sleep apnea (adult) (pediatric) 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
--- OUTSIDE RECORDS SUMMARY | 2019-02-19 08:05 | XMS REPORT | Continuity of Care Document ---
:1950 External Reference #:[id number] Author Name Aramis Smith MD Address [address] [place] [address] Care Team Providers Name Role Phone Edith Blake M.D. 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 Primary Care Physician Unavailable Payers Date Identification Numbers Payment Provider Subscriber Policy Number: [id number] [facility] [employer] Number: [id number] [address] [address] PayID: [id number] [place] [address] Problems Active Problems Provider Date Malignant hypertensive heart disease Michelle Morales M.D. Onset: 04/26/2011 without congestive heart failure Hyperlipidemia Michelle Morales M.D. Onset: 04/26/2011 Electrocardiogram abnormal Michelle Morales M.D. Onset: 04/26/2011 Supraventricular premature beats Michelle Morales M.D. Onset: 04/26/2011 Palpitations Michelle Morales M.D. Onset: 04/26/2011 Premature beats Michelle Morales M.D. Onset: 04/26/2011 Chest pain Michelle Morales M.D. Onset: 12/04/2012 Carotid artery occlusion Carotid Ultrasound Bilateral Onset: 06/16/2011 Dizziness and giddiness Michelle Morales M.D. Onset: 05/31/2011 Family History Date Family Member(s) Observation Comments Father Throat Cancer Father due to Throat Cancer () Social History Type Date Description Comments Sex Unknown Tobacco Use Start: Unknown Never Smoked Cigarettes ETOH Use Rare Social Drinker Recreational Drug Use Denies Drug Use Tobacco Use Start: Unknown Patient has never smoked Smoking Status Reviewed: 02/13/19 Patient has never smoked Allergies, Adverse Reactions, Alerts Description No Known Drug Allergies Medications Active Medications SIG Qnty Indications Ordering Provider Date Diovan HCT 1 by mouth 30tabs Lizeth Gamboa, 05/31/2012 320-25mg every day M.D. Tablets Rosuvastatin Calcium 1 tab by mouth Unknown 10mg every night Tablets Vitamin D Daily Unknown 2000Unit Tablets History Medications Simvastatin 1 tab by mouth 30tabs Pati Bernal 06/03/2013 - 40mg Tablets every night at [place] 02/13/2019 bedtime Aspirin Low Dose 1 po qd Michelle Morales, 12/20/2012 - 81mg M.D. 02/13/2019 Tablets Clopidogrel 1 po qd 30tabs Michelle Moraels, 12/20/2012 - 75mg Tablets M.D. 01/01/2013 Nitrostat 1 sl as needed 25tabs Lizeth Gamboa, 12/20/2012 - 0.4mg Tablets chest pain M.D. 02/13/2019 Sub Diovan HCT 1-2 po daily 30tabs Michelle Morales, 05/31/2012 - 320-25mg M.D. 05/31/2012 Tablets Diovan HCT 1 po qd 30tabs Michelle Morales, 11/29/2011 - 320-12.5mg M.D. 05/31/2012 Tablets Amlodipine Besylate 1 po qd 30tabs Michelle Morales, 06/01/2011 - 5mg M.D. 01/01/2013 Tablets Diovan 1 po qd 30tabs Michelle Morales, 06/01/2011 - 320mg Tablets M.D. 11/29/2011 Labetalol HCL 1 tab by mouth 60tabs Lizeth Gamboa, 04/26/2011 - 200mg twice a day M.D. 02/13/2019 Tablets Exforge 1 tab by mouth 30tabs Michelle Morales, 04/26/2011 - 5-320mg Tablets every day M.D. 06/01/2011 Anastrozole 1 tab by mouth Unknown - 1mg Tablets every day 05/31/2012 Furosemide 1 tab by mouth Unknown - 20mg Tablets every day as 05/31/2012 needed Tarka 1 tab by mouth Unknown - 4-240mg Tablets ER every day 04/26/2011 Bystolic 1 tab by mouth Unknown - 20mg Tablets every day 04/26/2011 Simvastatin 1 tab by mouth 30tabs Michelle Morales, - 20mg Tablets every night M.D. 06/03/2013 Vital Signs Date Vital Result Comment 02/13/2019 1:30pm BP Systolic 148 mmHg BP Diastolic 80 mmHg Heart Rate 80 /min Respiratory Rate 16 /min Height 62 inches 5'2" Weight 186.00 lb O2 % BldC Oximetry 98 % BMI (Body Mass Index) 34.0 kg/m2 BSA (Body Surface Area) 1.85 m2 06/09/2014 2:13pm BP Systolic 128 mmHg BP Diastolic 80 mmHg Heart Rate 84 /min Respiratory Rate 16 /min Height 62 inches 5'2" Weight 178.00 lb O2 % BldC Oximetry 96 % BMI (Body Mass Index) 32.6 kg/m2 BSA (Body Surface Area) 1.82 m2 06/06/2013 2:14pm BP Systolic 124 mmHg BP Diastolic 84 mmHg Heart Rate 88 /min Respiratory Rate 16 /min Height 62 inches 5'2" Weight 177.00 lb O2 % BldC Oximetry 98 % BMI (Body Mass Index) 32.4 kg/m2 BSA (Body Surface Area) 1.81 m2 01/01/2013 2:31pm BP Systolic 108 mmHg BP Diastolic 76 mmHg Heart Rate 72 /min Respiratory Rate 20 /min Height 62 inches 5'2" Weight 175.00 lb O2 % BldC Oximetry 97 % BMI (Body Mass Index) 32.0 kg/m2 BSA (Body Surface Area) 1.81 m2 12/20/2012 8:11am BP Systolic 136 mmHg BP Diastolic 86 mmHg Heart Rate 80 /min Respiratory Rate 16 /min Height 62 inches 5'2" Weight 176.00 lb O2 % BldC Oximetry 98 % BMI (Body Mass Index) 32.2 kg/m2 BSA (Body Surface Area) 1.81 m2 BP Systolic Sitting 136 mmHg BP Diastolic Sitting 86 mmHg BP Systolic Lying Down 150 mmHg BP Diastolic Lying Down 86 mmHg BP Systolic Standing 142 mmHg BP Diastolic Standing 90 mmHg 12/04/2012 2:44pm BP Systolic 130 mmHg BP Diastolic 88 mmHg Heart Rate 66 /min Respiratory Rate 16 /min Height 62 inches 5'2" Weight 176.00 lb O2 % BldC Oximetry 97 % BMI (Body Mass Index) 32.2 kg/m2 BSA (Body Surface Area) 1.81 m2 05/31/2012 2:16pm BP Systolic 140 mmHg BP Diastolic 90 mmHg BP Systolic Recheck 134 mmHg BP Diastolic Recheck 84 mmHg Heart Rate 68 /min Respiratory Rate 18 /min Height 64 inches 5'4" Weight 173.00 lb O2 % BldC Oximetry 98 % BMI (Body Mass Index) 29.7 kg/m2 BSA (Body Surface Area) 1.84 m2 11/29/2011 2:02pm BP Systolic 140 mmHg BP Diastolic 94 mmHg BP Systolic Recheck 130 mmHg BP Diastolic Recheck 82 mmHg Heart Rate 76 /min Respiratory Rate 16 /min Height 64 inches 5'4" Weight 170.00 lb O2 % BldC Oximetry 96 % BMI (Body Mass Index) 29.2 kg/m2 BSA (Body Surface Area) 1.83 m2 05/31/2011 2:01pm BP Systolic 126 mmHg BP Diastolic 90 mmHg BP Systolic Recheck 122 mmHg BP Diastolic Recheck 88 mmHg Heart Rate 76 /min Respiratory Rate 16 /min Height 64 inches 5'4" Weight 175.50 lb O2 % BldC Oximetry 98 % BMI (Body Mass Index) 30.1 kg/m2 BSA (Body Surface Area) 1.85 m2 04/26/2011 1:53pm BP Systolic 138 mmHg BP Diastolic 90 mmHg Heart Rate 58 /min Respiratory Rate 20 /min Height 64 inches 5'4" Weight 175.00 lb O2 % BldC Oximetry 97 % BMI (Body Mass Index) 30.0 kg/m2 BSA (Body Surface Area) 1.85 m2 Results Test Date Facility Test Result H/L Range Note Lipid Panel 10/23/2013 [facility] Cholesterol 162 mg/dL 120-200 Triglycerides 150 mg/dL High 0-149 HDL Cholesterol 55 mg/dL 40-60 Chol/HDL Ratio 2.9 Chol/HDL Ranges Cholesterol/HDL <SEE NOTE> 1 LDL Direct 92 mg/dL 0-99 VLDL Calculated 30 Hepatic Funct Panel 10/23/2013 [facility] T Protein 7.2 gm/dL 6.4-8.2 Albumin 4.2 gm/dL 3.2-4.6 T Bili 0.7 mg/dL 0.0-1.0 Direct Bili 0.1 mg/dL 0.0-0.2 Alk Phos 60 U/L 50-136 Alt (SGPT) 26 U/L 12-78 Ast (Sgot) 20 U/L 15-37 Basic Metabolic Panel 05/29/2013 [facility] Sodium 141 mmol/L 136-145 Potassium 4.7 mmol/L 3.6-5.2 Chloride 101 mmol/L 100-108 Co2 30 mmol/L 21-32 Glucose 93 mg/dL 70-110 Glu Range Header [facility] [employer] [place] <SEE NOTE> 2 BUN 23 mg/dL High 7-21 Creatinine 0.8 mg/dL 0.6-1.3 Calcium 9.4 mg/dL 8.5-10.8 GFR >60 GFR Ranges Normal Kidney Fu <SEE NOTE> 3 CBC W/Auto Differential 05/29/2013 [facility] WBC 6.3 K/uL 4.8-10.8 RBC 4.45 M/uL 4.20-5.40 Hemoglobin 13.7 gm/dL 12.0-16.0 Hematocrit 40.3 % 36.0-48.0 MCV 90.6 fL 80.0-100.0 MCHC 34.1 % 30.0-36.5 MCH 30.8 pg 27.0-34.0 RDW 11.1 % 11.0-15.0 Platelet 282 K/uL 130-450 MPV 8.9 fL 6.0-12.0 NE% 51 % 37-80 Ly% 35 % 10-50 Mo% 11 % 0-12 Eo% 3 % <=8 Ba% 1 % <=3 NE# 3.2 K/uL 1.8-8.6 Lymph# 2.2 K/uL 0.5-5.0 [place]# 0.7 K/uL 0.0-1.3 Eos# 0.2 K/uL 0.0-0.9 Baso# 0.1 K/ul 0.0-0.3 TSH & T4 Free ([facility]) 05/29/2013 [facility] TSH 2.17 uIU/mL 0.34-4.82 T4 - Free 1.15 ng/dL 0.77-1.60 Hepatic Funct Panel 05/29/2013 [facility] T Protein 7.3 gm/dL 6.4-8.2 Albumin 4.2 gm/dL 3.2-4.6 T Bili 0.7 mg/dL 0.0-1.0 Direct Bili 0.1 mg/dL 0.0-0.2 Alk Phos 62 U/L 50-136 Alt (SGPT) 28 U/L 12-78 Ast (Sgot) 20 U/L 15-37 Lipid Panel 05/29/2013 [facility] Cholesterol 245 mg/dL High 120-200 Triglycerides 141 mg/dL 0-149 HDL Cholesterol 55 mg/dL 40-60 Chol/HDL Ratio 4.5 Chol/HDL Ranges Cholesterol/HDL <SEE NOTE> 4 LDL Direct 165 mg/dL High 0-99 VLDL Calculated 28 CBC W/Auto Differential 12/19/2012 [facility] WBC 6.4 K/uL 4.8-10.8 Red Blood Cell 4.30 M/uL 4.20-5.40 Hemoglobin 13.3 gm/dL 12.0-16.0 Hematocrit 38.7 % 36.0-48.0 MCV 89.9 fL 80.0-100.0 MCHC 34.3 % 30.0-36.5 MCH 30.9 pg 27.0-34.0 RDW 10.8 % Low 11.0-15.0 Platelet Count 296 K/uL 130-450 MPV 8.8 fL 6.0-12.0 Neutrophil 49 % 37-80 Lymphocyte 38 % 10-50 Monocyte 9 % 0-12 Eosinophil 3 % <=8 Basophil 0 % <=3 Rosas# 3.2 K/uL 1.8-8.6 Lymphocyte # 2.5 K/uL 0.5-5.0 Monocyte # 0.6 K/uL 0.0-1.3 Eosinophil # 0.2 K/uL 0.0-0.9 Basophil # 0.0 K.uL 0.0-0.3 Lipid Panel 12/19/2012 [facility] Cholesterol 197 mg/dL 120-200 Triglycerides 118 mg/dL 0-149 High Density Lipoprotein 63 mg/dL High 40-60 Chol/HDL Ratio 3.1 Chol/HDL Reference Cholesterol/HDL <SEE NOTE> 5 LDL Direct 115 mg/dL High 0-99 Very Low Density Lipoprotein 24 Hepatic Funct Panel 12/19/2012 [facility] Total Protein 7.3 gm/dL 6.4-8.2 Albumin 4.2 gm/dL 3.2-4.6 Total Bilirubin 0.7 mg/dL 0.0-1.0 Direct Bilirubin 0.2 mg/dL 0.0-0.2 Alk Phos 55 U/L 50-136 Alt(SGPT) 28 U/L 12-78 Ast (Sgot) 30 U/L 15-37 TSH & T4 Free ([facility]) 12/19/2012 [facility] TSH 2.11 uIU/mL 0.34-4.82 T4 - Free 1.31 ng/dL 0.77-1.60 Basic Metabolic Panel 12/19/2012 [facility] Sodium 140 mmol/L 136-145 Potassium 4.5 mmol/L 3.6-5.2 Chloride 101 mmol/L 100-108 Carbon Dioxide 31 mmol/L 21-32 Glucose 91 mg/dL 70-110 Glucose Range Header [employer] [place] <SEE NOTE> 6 BUN 20 mg/dL 7-21 Creatinine 0.7 mg/dL 0.6-1.3 Calcium 9.2 mg/dL 8.5-10.8 GFR >60 GFR Reference Normal Kidney Fu <SEE NOTE> 7 Basic Metabolic Panel 05/04/2011 [facility] Sodium 140 mmol/L 136-145 Potassium 4.5 mmol/L 3.6-5.2 Chloride 102 mmol/L 100-108 Carbon Dioxide 28 mmol/L 21-32 Glucose 87 mg/dL 70-110 Glucose Range Header [employer] [place] <SEE NOTE> 8 BUN 21 mg/dL 7-21 Creatinine 0.7 mg/dL 0.6-1.3 Calcium 9.6 mg/dL 8.5-10.8 GFR >60 GFR Reference Normal Kidney Fu <SEE NOTE> 9 TSH & T4 Free ([facility]) 05/04/2011 [facility] TSH 1.76 uIU/mL 0.34-4.82 T4 - Free 1.04 ng/dL 0.77-1.60 1 Cholesterol/HDL Ratio Interpretation Risk : 1/2 Avg Avg 2x Avg 3x Avg Male : 3.43 4.97 9.50 23.99 Female : 3.27 4.44 7.05 11.04 2 The [place] [employer] recommends that the upper limit of the normal reference range for Glucose be 100 mg/dl. 3 Normal Kidney Function or Mild Disease - GFR >OR=60 Chronic Kidney Disease - GFR 15-59 Renal Failure - GFR < 15 GFR not calculated on patients under 18 years of age. Calculated (estimated) G FR is based on the MDRD Study equation, which assumes a steady state for creatinine. Estimated GFR may not be appropriate for medication dosing. 4 Cholesterol/HDL Ratio Interpretation Risk : 1/2 Avg Avg 2x Avg 3x Avg Male : 3.43 4.97 9.50 23.99 Female : 3.27 4.44 7.05 11.04 5 Cholesterol/HDL Ratio Interpretation Risk : 1/2 Avg Avg 2x Avg 3x Avg Male : 3.43 4.97 9.50 23.99 Female : 3.27 4.44 7.05 11.04 6 The [place] [employer] recommends that the upper limit of the normal reference range for Glucose be 100 mg/dl. 7 Normal Kidney Function or Mild Disease - GFR >OR=60 Chronic Kidney Disease - GFR 15-59 Renal Failure - GFR < 15 GFR not calculated on patients under 18 years of age. Calculated (estimated) G FR is based on the MDRD Study equation, which assumes a steady state for creatinine. Estimated GFR may not be appropriate for medication dosing. 8 The [place] [employer] recommends that the upper limit of the normal reference range for Glucose be 100 mg/dl. 9 Normal Kidney Function or Mild Disease - GFR >OR=60 Chronic Kidney Disease - GFR 15-59 Renal Failure - GFR < 15 GFR not calculated on patients under 18 years of age. Calculated (estimated) G FR is based on the MDRD Study equation, which assumes a steady state for creatinine. Estimated GFR may not be appropriate for medication dosing. Procedures Date Code Description Status 02/13/2019 87947 Echocardiography Complete Completed 06/09/2014 07747 Electrocardiogram Complete Completed 06/06/2013 72712 Electrocardiogram Complete Completed 12/20/2012 97408 Cardiovascular Stress Test W/Interpretation & Report Completed 12/20/2012 48432 Nuclear Imaging Myocardial Mult Studies Incl Wall Completed Motion/Ef 12/04/2012 15011 Echocardiography Complete Completed 12/04/2012 97973 Electrocardiogram Complete Completed 05/31/2012 51569 Electrocardiogram Complete Completed 11/29/2011 59772 Electrocardiogram Complete Completed 06/16/2011 05731 Carotid Doppler Complete Completed 06/16/2011 69535 Carotid Doppler Complete Completed 05/31/2011 43440 Electrocardiogram Complete Completed 04/26/2011 11542 Echocardiography Complete Completed 04/26/2011 57720 Holter Monitor Complete/Hookup,Analysis,Report & MD Interp Completed 04/26/2011 27241 Electrocardiogram Complete Completed Encounters Type Date Location Provider Dx Diagnosis Office Visit 02/13/2019 Reina Smith MD Z01.810 Encounter for 1:30p preprocedural cardiovascular examination I11.9 Hypertensive heart disease without heart failure E78.5 Hyperlipidemia, unspecified R94.31 Abnormal electrocardiogram [ECG] [EKG] I65.23 Occlusion and stenosis of bilateral carotid arteries Office Visit 06/09/2014 2:15p Lizeth Gonzales, 402.00 Hypertensive Heart M.D. Disease W/O Congestive Heart Failure 272.4 Hyperlipidemia Other Unspec Office Visit 06/06/2013 2:30p Lizeth Gonzales, 272.4 Hyperlipidemia Other M.D. Unspec 402.00 Hypertensive Heart Disease W/O Congestive Heart Failure Office Visit 01/01/2013 2:30p Reina Morales, 402.00 Hypertensive Heart M.D. Disease W/O Congestive Heart Failure 272.4 Hyperlipidemia Other Unspec 794.31 Electrocardiogram (ECG) (EKG) Abnormal Office Visit 12/04/2012 2:30p Reina Morales, 402.00 Hypertensive Heart M.D. Disease W/O Congestive Heart Failure 272.4 Hyperlipidemia Other Unspec 794.31 Electrocardiogram (ECG) (EKG) Abnormal 786.50 Pain Chest Unspec Office Visit 05/31/2012 2:30p Reina Morales, 402.00 Hypertensive Heart M.D. Disease W/O Congestive Heart Failure 272.4 Hyperlipidemia Other Unspec 794.31 Electrocardiogram (ECG) (EKG) Abnormal Office Visit 11/29/2011 2:15p Reina Morales, 433.10 Occlusion & Stenosis M.D. Carotid Artery W/O Cerebral Infarction 402.00 Hypertensive Heart Disease W/O Congestive Heart Failure 272.4 Hyperlipidemia Other Unspec 427.61 Premature Beats Supraventricular 782.3 Edema Office Visit 05/31/2011 2:15p Reina Morales, 402.00 Hypertensive Heart M.D. Disease W/O Congestive Heart Failure 272.4 Hyperlipidemia Other Unspec 427.61 Premature Beats Supraventricular 785.1 Palpitations 780.4 Dizziness & Giddiness Office Visit 04/26/2011 1:45p Reina Morales, 402.00 Hypertensive Heart M.DJamarcus Disease W/O Congestive Heart Failure 272.4 Hyperlipidemia Other Unspec 794.31 Electrocardiogram (ECG) (EKG) Abnormal 427.61 Premature Beats Supraventricular 785.1 Palpitations 427.69 Premature Beats Other Plan of Treatment Future Appointment(s):02/14/2020 10:00 am - Glendy Gomes M.D. at [id number] 12:30 pm - Carotid Ultrasound Bilateral at [id number]/13/2019 - Aramis Smith, Z01.810 Encounter for preprocedural cardiovascular gmunnxfbpoxI13.9 Hypertensive heart disease without heart gcorliyK92.5 Hyperlipidemia, kfienowfkxhZ78.31 Abnormal electrocardiogram [ECG] [EKG]I65.23 Occlusion and stenosis of bilateral carotid arteriesFollow up:1 yearRecommendations:I have gone over, reviewed and discussed the findings on examination, clinical impression with the patient, thoroughly and comprehensively. 1. Patient is preparing for left total knee replacement. Obviously we defer the actual risk to the expert opinion of the surgeon. However, in our opinion, froma cardiac standpoint, this is intermediate risk procedure. Patient exhibits no evidence of an unstable coronary syndrome, no acute decompensated cardiomyopathy, no uncontrolled arrhythmia, nor any severe valvular disorder. No further cardiac testing or intervention required that can reduce risk. Recommend to proceed with planned procedure 2. Stage I hypertension is defined as a systolic blood pressure ranging from 130-139 mmHg mmHg and a diastolic from 80-89 mmHg. Out of office blood pressure measurements are recommended to confirm the diagnosis of hypertension and for titration of blood pressure lowering medication in conjunction with possible telehealth counseling or clinical interventions.Recommend ideal body weight goal but at least a 1 kg reduction in body weight for most adults who are overweight. Expect about 1 mm of reduction in blood pressure for every 1 kg reduction in body weight. Consume a diet rich in fruits vegetables whole grains and low fat dairy products with reduced content of saturated and total fat. Reduction of dietary sodium with an optimal goal less than 1500 mgper day, but in for at least 1000 mg per day reduction in most adults. Recommend consumption of a diet rich in potassium. Recommend aerobic activity 90-150 minutes per week. To achieve 65-75% of heart rate reserve. Recommend dynamic resistant exercise 90-150 minutes per week. 50 -80% one rep maximum. Recommend 6 exercises 3 sets per exercise and 10 repetitions per set. 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 30-40% maximum voluntary contraction 3 sessions per week. Over 8-10 weeks. In individuals who drink alcohol reduce alcohol to less than 2 drinks for men, less than one drink daily for women. Use of blood pressure lowering medications is recommended for secondary prevention of recurrent cardiovascular disease events in patients with clinical cardiovascular disease and an average systolic blood pressure 130 mmHg or higher or an average of a diastolic blood pressure of 80 mmHg higher in for primary prevention in adults with an estimated 10 year atherosclerotic cardiac vascular disease risk of 10% or higher and a blood pressure of average of 130 mmHg or higher or an average diastolic blood pressure 3. No recent lipid panel available for review. Patient reports this is being checked by primary care physician. Monitoring oflipids/LFT's every 6 months. 4. inferior Q-waves noted, but are old.Present on EKG going back to 2010 5. Report of mild carotid disease will be investigated with a carotid ultrasound for the possibility of significant vascular disease progression.
--- OUTSIDE RECORDS SUMMARY | 2019-02-19 08:05 | XMS REPORT | Continuity of Care Document ---
:1950 External Reference #:[id number] Author Name Caitlin Gallo Care Team Providers Name Role Phone Edith Blake MD Primary Care Physician Unavailable Payers Date Identification Numbers Payment Provider Subscriber Policy Number: [id number] [employer] PayID: [id number] [address] [address] [place] [address] Problems Active Problems Provider Date Localized, primary osteoarthritis Olesya Khan M.D. Onset: 12/10/2018 Family History Date Family Member(s) Observation Comments General Hypertension General Cancer Social History Type Date Description Comments Sex Unknown Lives With Spouse Occupation Retired ETOH Use Denies alcohol use Tobacco Use Start: Unknown Patient has never smoked Smoking Status Reviewed: 02/11/19 Patient has never smoked Exercise Type/Frequency Exercises sporadically Allergies, Adverse Reactions, Alerts Description No Known Drug Allergies Medications Active Medications SIG Qnty Indications Ordering Provider Date Rosuvastatin Calcium Take One Tablet Unknown 10mg By Mouth Every Tablets Day Valsartan-Hydrochloroth Take One Tablet Unknown iazide By Mouth Every 320-25mg Tablets Day Vitamin D Unknown History Medications Tramadol HCL 1 tablet by 30tabs M25.562 Olesya Khan, 12/10/2018 - 50mg mouth every 6 M.D. 02/10/2019 Tablets hours as needed pain Vital Signs Date Vital Result Comment 02/11/2019 9:13am Height 64 inches 5'4" Weight 187.00 lb Heart Rate 60 /min BP Systolic 146 mmHg BP Diastolic 90 mmHg BMI (Body Mass Index) 32.1 kg/m2 12/10/2018 8:28am Height 64 inches 5'4" Weight 186.00 lb Heart Rate 64 /min BP Systolic 132 mmHg BP Diastolic 70 mmHg Body Temperature 97.9 F Pain Level 3 BMI (Body Mass Index) 31.9 kg/m2 Encounters Type Date Location Provider Dx Diagnosis Office Visit 12/10/2018 [facility]opedic Olesya Khan, M25.562 [facility]561 Pain in right knee M25.462 Effusion, left knee M25.461 Effusion, right knee M17.0 Bilateral primary osteoarthritis of knee Plan of Treatment Future Appointment(s):03/04/2019 8:15 am - [facility]D. at [facility]02/19/2019 3:30 pm - [facility] - [facility] 3:30 pm - [facility] - Olesya Khan M.D.M25.562 Pain in left kneeFollow up:Follow up: 2 weeks after pkwvszvQ20.462 Effusion, left kneeM17.0 Bilateral primary osteoarthritis of knee
[2019-02-19] MEDS ORDERED: Dexamethasone IV* 4 MG/ML 1 ML (4 MG) ONE (08:21)
[2019-02-19] MEDS ORDERED: ceFAZolin 2 GM PREMIX in ORs 2 GM/50 ML BAG ONE (08:21)
[2019-02-19] MEDS ORDERED: celeCOXIB CAP* 200 MG ONE (08:21)
[2019-02-19] MEDS ORDERED: Buffered Lidocaine 1% SYRIN* 1 ML/SYRINGE INTRADERM ONE (08:21)
[2019-02-19] MEDS ORDERED: Gabapentin CAP(*) 300 MG ONE (08:21)
[2019-02-19] MEDS ORDERED: Famotidine IV* 10 MG/ML 2 ML (20 mg) ONE (08:22)
[2019-02-19] MEDS ORDERED: Ondansetron INJ* 2 MG/ML VIAL ONE (09:26)
[2019-02-19] MEDS ORDERED: Midazolam* 1 MG/ML 5 ML VIAL (5 MG) ONE (09:26)
[2019-02-19] MEDS ORDERED: Bupivacaine 0.5% SDV PF* 30ML VIAL ONE (09:26)
[2019-02-19] MEDS ORDERED: fentaNYL* 50 MCG/ML 2 ML VIAL (100 MCG VIAL) ONE (09:26)
[2019-02-19] MEDS ORDERED: KETAMINE HCL* 50 MG/ML 10 ML VIAL ONE (09:26)
[2019-02-19] MEDS ORDERED: Propofol* 10 MG/ML 20 ML BTL ONE (09:26)
[2019-02-19] MEDS ORDERED: ROPIVACAINE 5 MG/ML 30 ML BTL (0.5%) ONE ×2 (10:03→10:44)
[2019-02-19] MEDS ORDERED: Lidocaine 2% PF * 5 ML VIAL ONE (11:16)
[2019-02-19] MEDS ORDERED: DiMENhydriNATE IV* 50 MG/ML VIAL IV PUSH PRN (11:33)
[2019-02-19] MEDS ORDERED: fentaNYL* 50 MCG/ML 2 ML VIAL (100 MCG VIAL) IV PRN (11:33)
[2019-02-19] MEDS ORDERED: HYDROmorphone INJ1* 1 MG/ML SYRINGE IV PRN (11:33)
[2019-02-19] MEDS ORDERED: Scopolamine 1.5 mg* PATCH TRANSDERM PRN (11:33)
[2019-02-19] MEDS ORDERED: Naloxone* 0.4 MG/ML 1 ML VIAL IV PRN (11:33)
[2019-02-19] MEDS ORDERED: Ondansetron INJ* 2 MG/ML VIAL IV PRN ×2 (11:33→13:16)
[2019-02-19] MEDS ORDERED: Acetaminophen IV 1GM/100ML * 100 ML ONE (12:39)
[2019-02-19] MEDS ORDERED: oxyCODONE TAB* 5 MG TAB PO PRN (13:16)
[2019-02-19] MEDS ORDERED: traMADol TAB* 50 MG PO PRN (13:16)
[2019-02-19] MEDS ORDERED: Ondansetron TAB* 4 MG PO PRN (13:16)
[2019-02-19] MEDS ORDERED: oxyCODONE/Acetamin 5/325 MG* TAB PO PRN (13:16)
[2019-02-19] MEDS ORDERED: Magnesium Hydroxide LIQ* 30 ML UDC PO PRN (13:16)
[2019-02-19] MEDS ORDERED: Cyclobenzaprine TAB* 10 MG PO PRN (13:16)
[2019-02-19] MEDS ORDERED: Polyethylene Glycol 3350* 17 GM PACKET PO PRN (13:16)
[2019-02-19] MEDS ORDERED: Bisacodyl SUPP* 10 MG SUPP PR PRN (13:16)
[2019-02-19] MEDS ORDERED: Morphine 4 MG/ML VIAL (1 ml) 4 MG/ML VIAL IV PRN (13:16)
[2019-02-19] MEDS ORDERED: diPHENhydraMINE IV* 50 MG/ML 1 ml VIAL (BENADRYL) IV PRN (13:16)
[2019-02-19] MEDS ORDERED: Acetaminophen TAB* 325 MG PO SCH (14:00)
[2019-02-19] MEDS: Lactated Ringers 1000 ML Bag* 1,000 ML IV SCH (15:56)
--- NOTE | 2019-02-19 16:16 | PN ---
Progress Note - Progress Note Date of Service: 02/19/19 SOAP: Pt was seen lying in bed in her room. She states that she is currently not having any pain. No questions. resting comfortably. She will start PT. Continue anticoagulation. []
--- NOTE | 2019-02-19 18:08 | CONS ---
CC: Dr. Edith Blake; Dr. Olesya Khan * CONSULTATION REPORT: DATE OF CONSULT: 02/19/19 PRIMARY CARE PROVIDER: Dr. Edith Blake. REQUESTING PHYSICIAN IN CONSULT: Dr. Olesya Khan. ATTENDING PHYSICIAN: Dr. Christel Branch (dictated by Shanita Valdez NP). REASON FOR CONSULT: Co-medical management. HISTORY OF PRESENT ILLNESS: I will refer you to DAVIS Wagner's history and physical for complete details, but in short, Ms. Shell is a 68-year-old female with past medical history of hypertension, hyperlipidemia and breast cancer, who presents to [facility] today for an elective left total knee arthroplasty. The patient had failed conservative treatment and elected to proceed with the left total knee replacement. She reports that she had surgery on her knee approximately 2 years ago, which was not effective at relieving her pain and so was seen by Dr. Khan. Regarding her hypertension, the patient has been on her current medications for a number of years and her blood pressure has been well controlled during that time. She does report a history of breast cancer in 2006 for which she had a lumpectomy and radiation therapy. In the PACU, the patient denies any pain. She complains of feelings of difficulty swallowing, though otherwise is resting comfortably. Her sister and her daughter- in-law are at the bedside and have no concerns. PAST MEDICAL HISTORY: 1. Hypertension. 2. Hyperlipidemia. 3. History of breast cancer, status post lumpectomy and radiation. 4. Sleep apnea. PAST SURGICAL HISTORY: 1. Lumpectomy. 2. Cholecystectomy. 3. Left knee surgery. HOME MEDICATIONS: 1. Valsartan/hydrochlorothiazide 320/25 mg 1 tab p.o. daily. 2. Rosuvastatin 10 mg p.o. daily. 3. Vitamin D 2000 units p.o. daily. ALLERGIES: No known drug allergies. FAMILY HISTORY: There is a significant family history of cancer, although no diabetes or heart disease. SOCIAL HISTORY: The patient denies any tobacco, alcohol, or recreational drug use. She lives at home with her , Deny, who will be her surrogate decision maker in the event she is unable to make her own decisions. REVIEW OF SYSTEMS: An 11-point review of systems was performed and all the pertinent positive and negative findings are in the HPI. All other systems are negative. PHYSICAL EXAM: Ms. Shell is a well-developed, well-nourished overweight white woman, lying in bed, in no acute distress. She appears her stated age. Vital Signs: Temp 97.2, heart rate 73, respiratory rate 16, oxygen saturation 94% on room air, blood pressure 135/82. HEENT: Head is atraumatic, normocephalic. Visual nichols are grossly intact. Pupils are equal, round, and reactive to light and accommodation. Oral mucous membranes are moist and without lesions. Neck: Full range of motion. Trachea at midline. Respiratory : Symmetrical chest expansion. No chest wall deformities. Lungs are clear to auscultation throughout. No rhonchi, wheezes, or rales. Cardiovascular: Regular rate and rhythm. S1, S2 present. No murmurs, rubs, or gallops. No JVD. Extremities: Skin warm and smooth bilaterally. No edema. No clubbing or cyanosis. Pedal pulses 1+ bilaterally. Abdomen: Soft, nontender to palpation. Bowel sounds normoactive throughout. Neuro: Awake, alert, and oriented x4, although somewhat drowsy. Cranial nerves II through XII are grossly intact. Moves all extremities. Skin: There is a surgical dressing intact to the left knee. Otherwise, no obvious lesions. DIAGNOSTIC STUDIES/LAB DATA: The patient had lab work on 02/11/19, which showed WBC 7.0, RBC 4.77, hemoglobin 14.0, hematocrit 42, platelets 284,000. INR 0.97. Sodium 140, potassium 4.1, chloride 100, carbon dioxide 32, BUN 19, creatinine 0.81, glucose 94. Urinalysis with 1+ bacteria, 1+ leukocyte esterase , 1+ wbc's, and 1+ rbc's. Chest x-ray on 02/11/19 reads as no active cardiopulmonary disease. 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 ASSESSMENT AND PLAN: Ms. Shell is a 68-year-old female with past medical history of hypertension, hyperlipidemia, breast cancer and sleep apnea, who presents to [facility] today for an elective left total knee arthroplasty. Hospital Medicine has been consulted for co-medical management for: 1. Status post left total knee arthroplasty. Management per Ortho. 2. Hypertension. The patient is slightly hypertensive in the PACU with highest systolic pressure at 141. I am not concerned about this blood pressure at this point and I would recommend continuing her valsartan and hydrochlorothiazide as have already been ordered. 3. Hyperlipidemia. Continue rosuvastatin or on-formulary alternative. 4. Fluids, electrolytes, and nutrition: The patient does not require any fluid resuscitation or electrolyte repletion at this point and I would recommend a regular diet as has already been ordered. 5. Code status: The patient will be a full code. 6. DVT prophylaxis: Per Ortho. Thank you for this consultation. We will continue to follow distantly. TIME SPENT: Approximately 40 minutes were spent on this consultation, greater than half of that time spent [id number] with the patient and her family obtaining my history, performing my physical exam, and reviewing the plan of care. This case has been reviewed with my attending, Dr. Branch, who is in agreement with the plan of care. SHANITA VALDEZ NP [id number]/CPS #: [id number] MELISSA
--- NOTE | 2019-02-19 18:13 | OP ---
Operative Report - Blank - Operative Report Date of Operation: 02/19/19 Note: BINH WRIGHT 1950 Date of Surgery: 02/19/19 Olesya Khan MD Shipping And Receiving Assistant: Darrick CANNON did help throughout the procedure with preparation of the knee, wound retraction, manipulation of the knee, and wound closure. Anesthesiologist: Memo Leal MD Anesthesia Type: Spinal Preoperative Diagnosis: Left severe degenerative osteoarthritis of the knee Postoperative Diagnosis: As above Procedure Performed: Left Total Knee Arthroplasty Tourniquet time: 55 minutes Complications: None Specimen: Bone and cartilage from the left knee joint sent to pathology. Hardware Used: Cemented Hernandez [employer]hew total knee hardware was used - For the femur a size 4 left legion posterior stabilized femoral component, for the tibia a size 3 left enrique II tibial baseplate, for the insert a size 9mm 3-4 posterior stabilized articular polyethylene insert, and for the patella a size 32 3-peg all poly patella. Brief History/Indication: BINH WRIGHT was known in clinic and had a history of severe left knee pain and swelling. She failed conservative treatment with anti-inflammatories, pain pills, intra-articular injections and physical therapy. She elected to undergo left total knee arthroplasty due to continued pain and decreased quality of life. Radiographs showed severe end stage osteoarthritis of the knee with bone on bone contact. Informed consent was obtained from the patient. She understood the risks of surgery included but were not limited to: bleeding, infection, damage to nearby structures, intraoperative fracture, nerve palsy, failure of the hardware, early loosening, knee stiffness or loss of motion, anesthesia complications, stroke, heart attack , blood clot and . She wished to proceed. Intra-Operative Findings: Intraoperatively the patient was noted to have severe loss of cartilage in all 3 compartments of the knee. Description of the Procedure: BINH WRIGHT was identified in the preanesthesia unit. Her left knee was marked as the correct operative side. Informed consent was signed and placed in the chart. The patient was taken to the operating room and placed under anesthesia without complication. A roman catheter was placed. A tourniquet was placed on the left thigh. The left lower extremity was prepped and draped in the usual sterile fashion. Preoperative time-out was made to correctly identify the patient, side and site. Appropriate intraoperative antibiotics were given within one hour of incision. Tourniquet was inflated. A midline incision was made and carried sharply down to the extensor mechanism. A new 10 blade was used to make a standard medial parapatellar arthrotomy. The patella was subluxed laterally. Electrocautery was used to dissect soft tissue off the superomedial tibia to the midsagittal plane. The knee was flexed up. The anterior horn of the lateral meniscus and the ACL were sharply incised. A drill was used to enter the distal femur. The intramedullary distal femoral cutting guide was pinned on the distal femur. The oscillating saw was used to make the distal femoral cut. The external rotation guide was pinned on the distal femur and the distal femur was sized to a size 4. The size 4 multi-cutting jig was pinned on the distal femur. The oscillating saw was used to make the appropriate 4 chamfer cuts. Next the PCL was completely released. The extramedullary tibial cutting guide was pinned on the proximal tibia and the oscillating saw was used to make the proximal tibial cut perpendicular to the mechanical axis of the tibia. The bone was carefully removed. The knee was brought out into full extension. The spacer block was placed and had excellent fit with the knee in full extension. The medial and lateral ligaments were well balanced. The flexion and extension gaps were well balanced. The knee was flexed up. Lamina cocktail server was placed both medially and laterally. Any remaining meniscus was removed with electrocautery. Curved osteotome was used to remove any posterior osteophytes. The tibial tray and drop don were placed and confirmed a satisfactory tibial cut. The size 4 left femoral trial was impacted onto the distal femur. This trial had excellent fit and stability. The box for the posterior stabilized implant was prepared using a box cut osteotome and a reamer. Next a tibial tray trial and 9 mm insert trial was placed. The knee was taken through a range of motion and had full extension to 130 degrees of flexion. Patellofemoral tracking was satisfactory. The patella was inverted and sized to a size 32. Three peg holes were drilled through the size 32 drill guide. The trial patella was placed and the knee was taken through a range of motion. There was satisfactory patellofemoral tracking. All trials were removed. The tibia was subluxed anteriorly and sized to a size 3. The proximal tibial was prepared with a size 3 keel punch. All bony cut surfaces were irrigated with sterile saline and dried. Final implants were cemented into place starting with the tibia, followed by the femur, and last the patella. A 9 mm insert trial was placed and the knee was brought into full extension. Tourniquet was turned down and the knee was copiously irrigated with sterile saline. Electrocautery was used to obtain meticulous hemostasis. Once the cement had fully cured, the insert trial was removed. Any excess cement was removed from around the hardware and capsule. Final insert chosen was a 9 mm posterior stabilized Enrique II articular insert size 3-4. Stability of the insert was checked and noted to be stable. The extensor mechanism was closed using number 1 vicryls. The rest of the incision was closed in a layered fashion using 0 and 2-0 vicryls. The skin was closed using 3-0 nylon suture. Sterile xeroform, 4x4s and webril were used to cover the incision. Gigi wrap and cold pack were used to cover the dressings. The patients anesthesia was reversed without difficulty. She was taken to the PACU in stable condition. Intended weight-bearing will be as tolerated.
[2019-02-19] MEDS: ceFAZolin 1 GM ADVAN(*) 1 GM in NS 0.9% 50 ML* 50 ML IVPB SCH (19:02)
[2019-02-19] MEDS: oxyCODONE/Acetamin 5/325 MG* TAB PO PRN (19:27)
[2019-02-19] MEDS: Docusate CAP* 100 MG PO SCH (19:27)
[2019-02-19] MEDS: Magnesium Hydroxide LIQ* 30 ML UDC PO SCH (19:29)
[2019-02-19] MEDS: Acetaminophen TAB* 325 MG PO SCH (20:09)
[2019-02-20] MEDS: Lactated Ringers 1000 ML Bag* 1,000 ML IV SCH (01:30)
[2019-02-20] MEDS: ceFAZolin 1 GM ADVAN(*) 1 GM in NS 0.9% 50 ML* 50 ML IVPB SCH ×2 (03:22→11:04)
[2019-02-20 05:25] LABS: Hematocrit 37 % (35-47); Platelet Count 248 10^3/uL (150-450)
[2019-02-20 05:47] LABS: Calcium 8.8 mg/dL (8.6-10.3); EGFR African American 92.4 (>60); EGFR Non-African American 76.4 (>60); Potassium 4.1 mmol/L (3.5-5.0)
[2019-02-20] MEDS: Acetaminophen TAB* 325 MG PO SCH ×2 (05:48→13:29)
[2019-02-20] MEDS: oxyCODONE/Acetamin 5/325 MG* TAB PO PRN ×2 (06:08→12:36)
[2019-02-20] MEDS: Magnesium Hydroxide LIQ* 30 ML UDC PO SCH (08:16)
[2019-02-20] MEDS: Docusate CAP* 100 MG PO SCH (08:17)
[2019-02-20] MEDS ORDERED: Hydrochlorothiazide TAB* 25 MG PO SCH (09:00)
[2019-02-20] MEDS ORDERED: Atorvastatin* 20 MG TAB PO SCH (09:00)
[2019-02-20] MEDS ORDERED: Valsartan TAB* 160 MG PO SCH (09:00)
[2019-02-20] MEDS ORDERED: Apixaban* 2.5 MG TAB PO SCH (09:00)
--- NOTE | 2019-02-20 12:37 | PN ---
Progress Note - Progress Note Date of Service: 02/20/19 SOAP: Subjective: []Pt seen OOB in chair,family present with her. Denies CP, SOB, dizziness, nausea. Desires DC to home today, has help from family and VNS set up. Objective: [] General: Appears well, NAD LLE: left knee dressing changed, incision CDI, thigh soft, DF/PF intact, DP2+, sensation intact to light touch distally Calves supple and nontender without erythema, edema or palpable cords Assessment: []POD 1 sp LTK Plan: []WBAT PT/OT eliquis 2.5 mg po BID x 30 days post op DC home today Vital Signs Temp 97 F 02/20/19 07:49 Pulse 74 02/20/19 07:49 Resp 18 02/20/19 12:36 BP 112/75 02/20/19 07:49 Pulse Ox 97 02/20/19 08:00 Intake & Output 02/19/19 02/20/19 02/20/19 18:59 06:59 18:59 Intake Total 1950 1948 1943 Output Total 1400 100 Balance 0138 342 9787 Weight 187 lb 3.2 oz Intake: IV Fluids 6411 199 2007 ABX - CEFAZOLIN 113 LR 1950 990 990 IVPB 58 ABX - CEFAZOLIN 58 Oral 900 840 Output: Urine 100 Gurber 1400 Other: # Bowel Movements 0 Laboratory Last Values Hgb 12.0 g/dL (12.0-16.0) 02/20/19 05:20 Hct 37 % (35-47) 02/20/19 05:20 Plt Count 248 10^3/uL (150-450) 02/20/19 05:20 MPV 9.0 fL (7.4-10.4) 02/20/19 05:20 Sodium 137 mmol/L (135-145) 02/20/19 05:20 Potassium 4.1 mmol/L (3.5-5.0) 02/20/19 05:20 Chloride 103 mmol/L (101-111) 02/20/19 05:20 Carbon Dioxide 30 mmol/L (22-32) 02/20/19 05:20 Anion Gap 4 mmol/L (2-11) 02/20/19 05:20 BUN 15 mg/dL (6-24) 02/20/19 05:20 Creatinine 0.75 mg/dL (0.51-0.95) 02/20/19 05:20 Est GFR ( Amer) 92.4 (>60) 02/20/19 05:20 Est GFR (Non-Af Amer) 76.4 (>60) 02/20/19 05:20 BUN/Creatinine Ratio 20.0 (8-20) 02/20/19 05:20 Glucose 121 mg/dL (70-100) H 02/20/19 05:20 Calcium 8.8 mg/dL (8.6-10.3) 02/20/19 05:20
--- NOTE | 2019-02-20 12:49 | DS ---
Orthopedic Discharge Summary - Discharge Summary Date of Admission:02/19/19 Date of Discharge: 02/20/19 Date of Surgery: 02/19/19 Attending Orthopedic Provider: Dr Khan Pre-operative Diagnosis: left knee osteoarthritis Operative Procedure: left total knee replacement Disposition of Patient: home Condition of Patient: stable History: BINH WRIGHT is a 68 year old F with years of increasingly severe left knee pain. Patient has failed conservative management and has elected to undergo a left total knee replacement Hospital Course: BINH was admitted to [facility] on 02/19/19. Patient underwent a left total knee replacement without complication followed by a brief recovery in PACU and transfer to the Short Stay Surgical Unit in stable condition. Our hospitalist service, physical therapy and occupational therapy also participated in this patients care. Post-op day 1: patient was alert and in no acute distress. Dressing was changed, incision clean, dry and intact. Operative extremity dorsiflexion and plantarflexion intact, sensation intact to light touch distally, DP2+. Patient was deemed to be medically and orthopedically stable for discharge. Physical therapy goals were met. Home Medications Medication Instructions Recorded Confirmed Type Cholecalciferol (Vitamin D3) 2,000 unit PO QAM 02/11/19 02/19/19 History Vitamin D3 Rosuvastatin Calcium 10 mg PO QAM 02/11/19 02/19/19 History Valsartan/HCTZ 320/25(NF) [Diovan 1 tab PO QAM 02/11/19 02/19/19 History Hct 320/25(NF)] Acetaminophen TAB* [Tylenol TAB*] 975 mg PO Q8HR tab 02/20/19 Rx Apixaban* [Eliquis*] 2.5 mg PO BID #60 tab 02/20/19 Rx Docusate CAP* [Colace Cap*] 100 mg PO BID PRN #90 cap 02/20/19 Rx oxyCODONE/Acetamin 5/325 MG* 1 tab PO Q4H PRN tab MDD 10 02/20/19 Rx [Percocet 5/325 TAB*] oxyCODONE/Acetamin 5/325 MG* 2 tab PO Q4H PRN #70 tab MDD 10 02/20/19 Rx [Percocet 5/325 TAB*] Discharge Instructions following Orthopedic Surgery: Activity: * Weight Bearing as tolerated * Continue physical therapy and occupational therapy exercises as shown * Home physical therapy Wound care: * OK to shower on post-op day 3, no bathing, swimming, or submerging wound. * Use gentle soap, pat dry. Cover with gauze, RADHA wrap or tape. * Visiting home nurse to do wound checks. Call Orthopedic office for: * Increased drainage * Redness * Increased pain * Fever Go to ER with shortness of breath or chest pain. Diet: * Regular diet * Increase fluids and fiber to prevent constipation. * Continue to use stool softeners, call office if no bowel motion within 48 hours. Medications See Home Medication List in your packet for medications that you should take after discharge. DVT Prophylaxis: This medication increases bleeding tendency Eliquis Dosin.5 mg, 1 tab every 12 hours x 30 days Pain Control: Percocet Dosin/325 mg 1-2 tabs by mouth every 4-6 hours as needed for pain. Maximum of 10 tabs per day. Hold for sedation. Wean off as soon as pain allows Please note that Percocet contains Tylenol (acetaminophen). Maximum daily dose of Tylenol is 4000 mg from all sources. Antibiotics are required prior to any dental work. FOLLOW UP: Follow up with [Bill ] Within 10-14 days, call for appointment Please call our office with any questions or concerns ([phone])
[2019-02-20 15:49] VITALS: BP 112/72
== END 2019-02-20 16:10 | disposition home health service (06) | DRG 470 ==
LOC: AA 08:00 → SSU 13:16
PROVIDERS: ADMIT Orthopaedic Surgery Adult Reconstructive Orthopaedic Surgery; ATTEND Orthopaedic Surgery Adult Reconstructive Orthopaedic Surgery
PROC: 0SRD0J9 Replacement of Left Knee Joint with Synthetic Substitute, Cemented, Open Approach (ICD-10-PCS; principal; 2019-02-19 11:00)
DX: M17.12 Unilateral primary osteoarthritis, left knee (principal); E78.00 Pure hypercholesterolemia, unspecified; M25.462 Effusion, left knee; E78.5 Hyperlipidemia, unspecified; I11.9 Hypertensive heart disease without heart failure; E66.9 Obesity, unspecified; I65.23 Occlusion and stenosis of bilateral carotid arteries; R94.31 Abnormal electrocardiogram [ECG] [EKG]; G47.33 Obstructive sleep apnea (adult) (pediatric); M25.762 Osteophyte, left knee; Z85.3 Personal history of malignant neoplasm of breast; Z90.49 Acquired absence of other specified parts of digestive tract; Z80.9 Family history of malignant neoplasm, unspecified; Z82.49 Family history of ischemic heart disease and other diseases of the circulatory system; Z80.8 Family history of malignant neoplasm of other organs or systems; Z68.32 Body mass index [BMI] 32.0-32.9, adult; Z92.3 Personal history of irradiation
CPT/HCPCS: 36415; 80048; 85014; 85018; 85049; A9270-GY; G8978-GP-CL; G8979-GP-CI; J0690; J1100; J2250; J2405; J2704; J2795; J3010; J3490

== ENCOUNTER 2022-07-21 06:43 | Inpatient (IN) ==
[~2022-07-21 06:43] MED LIST changes: +Buffered Lidocaine 1% SYRIN 1 ml INTRADERM ONE; -Buffered Lidocaine 1% SYRIN* 1 ML/SYRINGE INTRADERM ONE; -Dexamethasone IV* 4 MG/ML 1 ML (4 MG) IV SLOW PU ONE; -Famotidine IV* 10 MG/ML 2 ML (20 mg) IV ONE; -Gabapentin CAP(*) 300 MG PO ONE; -Lactated Ringers 1000 ML Bag* 1,000 ML IV SCH; +Lactated Ringers 1000 ml BAG 1,000 ML IV SCH; -Tranexamic Acid 1,000 MG in NS 0.9% 50 ML* (outpatient use) IV SCH; -celeCOXIB CAP* 200 MG PO ONE
[2022-07-21] MEDS ORDERED: ROPIVACAINE 5 MG/ML 30 ML BTL (0.5%) ONE (07:02)
[2022-07-21] MEDS ORDERED: ceFAZolin 2 GM in NS PREMIX 2 GM/100 ML BAG IVPB ONE (07:04)
[2022-07-21] MEDS ORDERED: Midazolam 2 mg/2 ml VIAL 1 mg/ml 2 ml VIAL (2 mg) ONE ×2 (08:05→10:40)
[2022-07-21] MEDS ORDERED: fentaNYL 100 mcg/2 ml 50 MCG/ML VIAL IV PRN (09:24)
[2022-07-21] MEDS ORDERED: Naloxone 0.4 mg VIAL 0.4 mg/ml 1 ml VIAL IV PRN (09:24)
[2022-07-21] MEDS ORDERED: Prochlorperazine 5 mg/ml 2 ml VIAL (10 mg) IV PRN (09:24)
[2022-07-21] MEDS ORDERED: Ketamine HCL 50 mg/ml 10 ml VIAL (500 MG) ONE (09:51)
[2022-07-21] MEDS ORDERED: Morphine 2 MG/ML SYRINGE IV PRN (10:06)
[2022-07-21] MEDS ORDERED: Lactulose 30 ml UDC PO PRN (10:06)
[2022-07-21] MEDS ORDERED: Ondansetron 4 mg VIAL 2 MG/ML 2 ml VIAL IV PRN (10:06)
[2022-07-21] MEDS ORDERED: Magnesium Hydroxide LIQ 30 ML UDC PO PRN (10:06)
[2022-07-21] MEDS ORDERED: Ondansetron ODT 4 mg TAB 4 MG TAB PO PRN (10:06)
[2022-07-21] MEDS ORDERED: Phenylephrine 40 mcg/mL 10mL (400mcg) SYRINGE ONE (10:19)
[2022-07-21] MEDS ORDERED: Phenylephrine IV 10 MG/ML 1 ml VIAL ONE (10:26)
[2022-07-21] MEDS ORDERED: fentaNYL 100 mcg/2 ml 50 MCG/ML VIAL ONE (12:32)
[2022-07-21] MEDS ORDERED: Prochlorperazine 5 mg/ml 2 ml VIAL (10 mg) ONE (12:43)
[2022-07-21] MEDS: Lactated Ringers 1000 ml BAG 1,000 ML IV SCH (13:56)
[2022-07-21] MEDS: ceFAZolin 1 GM ADVAN 1 GM in NS 0.9% 50 ML 50 ML IVPB SCH (17:19)
[2022-07-21] MEDS: Magnesium Hydroxide LIQ 30 ML UDC PO SCH (21:52)
[2022-07-22] MEDS: Lactated Ringers 1000 ml BAG 1,000 ML IV SCH (00:54)
[2022-07-22] MEDS: ceFAZolin 1 GM ADVAN 1 GM in NS 0.9% 50 ML 50 ML IVPB SCH ×2 (00:55→08:08)
[2022-07-22 07:38] LABS: Hematocrit 33 % (35-47); Hemoglobin 10.9 g/dL (12.0-16.0); Mean Platelet Volume 9.2 fL (7.4-10.4); Platelet Count 189 10^3/uL (150-450)
[2022-07-22 07:54] LABS: Calcium 8.4 mg/dL (8.6-10.3); Potassium 3.7 mmol/L (3.5-5.0); eGFR CKD-EPI 83.5 (>60)
[2022-07-22] MEDS: Magnesium Hydroxide LIQ 30 ML UDC PO SCH (08:09)
[2022-07-22] MEDS ORDERED: Vitamin THERAPEUTIC TAB PO SCH (09:00)
[2022-07-22 09:12] VITALS: BP 106/62
== END 2022-07-22 11:50 | disposition home health service (06) | DRG 470 ==
LOC: AA 06:43 → INTOOBSV 06:43 → SSU 13:51
PROVIDERS: ADMIT Orthopaedic Surgery Adult Reconstructive Orthopaedic Surgery; ATTEND Orthopaedic Surgery Adult Reconstructive Orthopaedic Surgery